=== PATIENT | male | born 1940 | race Caucasian/White ===

== ENCOUNTER → 2016-11-02 | Outpatient (CLI) | payer MEDICARE, MEDICAID ==
[~2016-11-02] MED LIST: "\\\"PREP SPRAY\\\"-TIN4 OZ"; ACETAMINOPHEN500 M1 PO; ASPIRIN EC81 MG PO; BRILINTA90 MG PO; CASODEX50 M1 PO; COLACE100 MG PO; COREG12.5 MG PO; DESYREL50 MG PO; FLOMAX0.4 MG PO; FLORASTOR250 MG PO; GLUCOSE4 GM PO; LACTINEX (FLORA1 TAB PO; LANTUS (IN100 UNIT/M SUB-Q; LANTUS SOL100 UNIT/1 SUB-Q; LASIX20 MG PO; LASIX40 MG PO; LEVEMIR100 UNIT/1 SUB-Q; LIPITOR80 MG PO; LUPRON DEPOT-22.5 MG IM; MYCOSTATIN CREA30 GM TOP; NORCO 5-325 MG1 TAB PO; NORVASC2.5 MG PO; NOVOLOG100 UNIT/M SUB-Q; PAXIL20 MG PO; PEPCID20 MG PO; PHOSLO667 MG PO; PRILOSEC20 MG PO; PROZAC20 MG PO; SODIUM BICARBO650 MG PO; THERAGRAN-M1 TAB PO; ULTRAM50 MG PO; VELTASSA8.4 GM PO; ZESTRIL40 MG PO; ZOFRAN8 MG PO
== END | disposition disaster alternative care site (69) ==
LOC: GRAD 10:30
DX: E11.22 Type 2 diabetes mellitus with diabetic chronic kidney disease (principal); N17.9 Acute kidney failure, unspecified; R93.49 Abnormal radiologic findings on diagnostic imaging of other urinary organs

== ENCOUNTER 2016-11-18 10:06 | Inpatient (IN) | payer MEDICARE, MEDICAID ==
[~2016-11-18] VITALS: Ht 175.3 cm; Wt 81.5 kg
--- NOTE | ~2016-11-18 | ER ---
PATIENT'S NAME: KEVAN WHATLEY [facility] AGE: 76 Y [address] ROOM: [place] [address] LOCATION: GPCU ADMIT DATE: 11/18/2016 ER/Outpatient Report DISCHARGE DATE: FAMILY PHYSICIAN: PHYSICIAN, UNKNOWN ATTENDING PHYSICIAN: HUGO RUSSO V TIME OF ARRIVAL: 1006 hours. TIME SEEN: 1006 hours. IDENTIFICATION: A 76-year-old male. CHIEF COMPLAINT: Fall. HISTORY OF PRESENT ILLNESS: The patient is a 76-year-old male who sustained a ground-level fall, landing on the right side of his head onto a carpeted floor. No loss of consciousness, but he is complaining of pain on the left side of his neck. He also complains of diffuse back pain. No numbness or tingling, and no other problems or concerns. His , however, states that he is not a pleasant person. He has been verbally abusive toward her. He has stated that he is depressed and not wanting to live anymore, and he has not been compliant with his medications. The patient does admit to depression. When asked about suicidal ideation, yes he has thoughts of suicide. No active plan, but a "partial plan." When I ask him what this means, he says he is thinking about what he wants to do. He does have a history of prostate cancer. He is supposed to get injections, but he does not do those regularly. He was just started on hemodialysis through a central dialysis catheter on the left side. He apparently no-showed some dialysis appointments, but he did get dialyzed on and was due for dialysis today. The patient did not have a syncopal episode. He states he just lost his balance approximately 40 minutes prior to arrival. PAST MEDICAL HISTORY: ALLERGIES: NO KNOWN DRUG ALLERGIES. CURRENT MEDICATIONS: The patient did not bring a medication list. They are unaware of the changes made in his medications. His discharge medications on October 18 included PATIENT'S NAME: KEVAN WHATLEY [facility] AGE: 76 Y [address] ROOM: [place] [address] LOCATION: GPCU ADMIT DATE: 11/18/2016 ER/Outpatient Report DISCHARGE DATE: FAMILY PHYSICIAN: PHYSICIAN, UNKNOWN ATTENDING PHYSICIAN: HUGO RUSSO V at that time: 1. Lisinopril. 2. Lipitor. 3. PhosLo. 4. Carvedilol. 5. Insulin Lantus. 6. Lupron. 7. Slovan. 8. Ultram. 9. Trazodone. 10. Multivitamin. 11. Zofran. 12. Famotidine. 13. Aspirin. 14. Flomax. His said that his medications have changed; some have been taken away, and some have been added, and they do not know what those are, and I do not have a current list of those. MEDICAL PROBLEMS: Include hematuria; chronic anemia, with acute blood loss anemia in October, received transfusions; acute kidney injury; chronic kidney disease; diabetes mellitus, insulin requiring; hypertension; metastatic prostate cancer; and coronary artery disease, status post CABG. PRIOR SURGERIES: CABG and prostatectomy. SOCIAL HISTORY: The patient works at a [employer]. He is . He lives here in [place]. Tobacco use: Denies currently. Alcohol use: Denies. Drug use: Denies. He quit smoking about 20 years ago, according to old records. FAMILY HISTORY: Positive for heart disease in his parents. REVIEW OF SYSTEMS: All systems reviewed. The patient denies any other positive review of systems. His , however, perseverates on his noncompliance and that he does not do anything. He does not bathe. She is quite concerned about him. PHYSICAL EXAMINATION: VITAL SIGNS: Blood pressure 124/53, pulse 84, respirations 20, temperature 97.9, and saturation is 96% on room air. GENERAL: A 76-year-old male, in mild distress. PATIENT'S NAME: KEVAN WHATLEY [facility] AGE: 76 Y [address] ROOM: [address] [address] [facility] ADMIT DATE: 11/18/2016 ER/Outpatient Report DISCHARGE DATE: FAMILY PHYSICIAN: PHYSICIAN, UNKNOWN ATTENDING PHYSICIAN: HUGO RUSSO V HEENT: Head: Normocephalic, atraumatic. Ears: TMs translucent, both ears. The patient is immobilized in a C-collar. Eyes: Pupils equal and reactive to light and accommodation. Extraocular movements intact. Nose: Mucosa pink, no lesions. Mouth: No lesions. Pharynx: Benign. NECK: Supple. No lymphadenopathy. He is immobilized in a C-collar. LUNGS: Clear to auscultation. HEART: Regular rate and rhythm. ABDOMEN: Soft and nondistended. No hepatosplenomegaly. No palpable masses. Nontender. SKIN: [place], warm, and dry. No lesions or rashes noted. NEUROLOGIC: No focal deficit. No significant lower extremity edema. No calf tenderness. No tenderness to pelvic rock. LABORATORY AND DIAGNOSTIC DATA: Chest x-ray: No acute process. Left-sided dialysis catheter in place. Pelvis x-ray: No acute fractures, pending Radiology over-read. Head CT: Negative for acute findings per Radiology. Cervical spine: Degenerative changes. No acute fracture. Thoracic spine CT: Degenerative changes. Scattered sclerotic bony lesions, worse at the T9 level, worrisome for bony metastatic disease. Lumbar spine CT: Multilevel degenerative changes with no fracture. Chronic bilateral spondylolysis at L5-S1. Small, scattered, sclerotic bony lesions. Bony metastatic disease cannot be excluded. EKG: Normal sinus rhythm at 93 beats per minute. No acute ST elevation or depression. Right bundle-branch block is present. No prior EKG available at this time for comparison. Alcohol less than 0.010. Acetaminophen less than 2. Salicylate less than 2.8. Troponin-I elevated at 0.506. CK-MB is normal at 1.6 and CPK 84. Magnesium 1.6. Sodium 136, potassium 4.6, chloride 106, CO2 low at 15, BUN 83, creatinine 5.0, and blood sugar 91. Alkaline phosphatase elevated at 764, AST 44, and ALT 54. Hemoglobin 7.4, most recent hemoglobin was 8.3 on November 13, hematocrit 23.6, macrocytic indices, platelets 199, and white count elevated at 22.1 with 75% segs and 16% bands. White blood cell count was 6.0 on November 13. Lactate 1.4. Procalcitonin 5.70. UA: Full field of white cells, 50 to 100 red cells, and rare epithelial cells. EMERGENCY DEPARTMENT COURSE: The patient's C-collar was removed, and his spine was palpated with tenderness, so it was placed back on, and he was placed in a [place] J collar due to persistent pain after a ground-level fall. IMPRESSION: 1. Fall with neck pain. [place] J collar placed. 2. Depression with suicidal ideation. 3. Leukocytosis. PATIENT'S NAME: KEVAN WHATLEY [facility] AGE: 76 Y [address] ROOM: [id number] [place], [place] [address] [facility] ADMIT DATE: 11/18/2016 ER/Outpatient Report DISCHARGE DATE: FAMILY PHYSICIAN: PHYSICIAN, UNKNOWN ATTENDING PHYSICIAN: HUGO RUSSO V 4. Urinary tract infection. Antibiotics will be started in Dialysis. 5. Chronic kidney disease, just recently started hemodialysis. The patient was taken emergently to dialysis. 6. Chronic anemia. 7. Acute blood loss anemia. Hemoglobin at this time is at baseline. It will be monitored, and if it falls, then he will receive packed red blood cells. 8. Prostate cancer with metastatic disease. PLAN: Admission per hospitalist after he receives dialysis. Again, antibiotics will be initiated in Dialysis. The patient remained hemodynamically stable throughout his stay here in the emergency room. VANIA DIAS MD CAR/modl /[id number] d: 11/18/16 1819 t: 11/19/16 0722, OUTPATIENT REPORT
--- NOTE | ~2016-11-18 | PN ---
PATIENT'S NAME: KEVAN WHATLEY [facility] AGE: 76 Y [address] ROOM: [place] [address] LOCATION: GPCU ADMIT DATE: 11/18/2016 Progress Notes DISCHARGE DATE: FAMILY PHYSICIAN: Vasyl Reece MD ATTENDING PHYSICIAN: HUGO RUSSO V DATE OF SERVICE: 12/02/2016 This patient is continuing to undergo hemodialysis. He has a hemodialysis catheter, which has stopped oozing. I placed several sutures in puncture sites, which were not closed and those are doing fine, not oozing, and they will need to be removed that being the sutures in several days. Of note is the fact that he is being treated with oral vancomycin for Clostridium difficile, but he has formed stools and hopefully will be taken off this relatively soon. His laboratory data show a white count of 12.2 which is down, but his hemoglobin is 6.9 and hematocrit 22.1, indeed he might need some blood. His chemistries have been reviewed and his electrolytes were reasonable. His BUN is 24, creatinine 3.4. The remainder noted is reasonably stable. Again, consideration for transfusion. MD PAUL ROSE/morena /[id number] d: 12/02/1631 t: 12/15/16 0648, PROGRESS NOTES
--- NOTE | ~2016-11-18 | CON ---
PATIENT'S NAME: KEVAN WHATLEY [facility] AGE: 76 Y [address] [place]OM: [facility] [place] [place] [address] LOCATION: GICU ADMIT DATE: 11/18/2016 Consultation DISCHARGE DATE: FAMILY PHYSICIAN: Vasyl Reece MD ATTENDING PHYSICIAN: HUGO RUSSO V DATE OF CONSULTATION: 11/25/2016 REFERRING PHYSICIAN: CARRIE JOSHUA This is a patient who is on hemodialysis via a left dialysis catheter. I was contacted by the nurses because he continued to bleed despite Surgicel and pressure dressings from the dialysis catheter site. I examined this and I saw 2 areas which were bleeding, one was a puncture wound that was not sutured and the second was the site of the catheter where the suture might not have been tight enough. He is bleeding from these 2 sites and I will repair those. MD PAUL ROSE/morena /[id number] d: 11/25/16 1536 t: 11/26/16 0954, CONSULTATION REPORT
--- NOTE | ~2016-11-18 | PN ---
PATIENT'S NAME: KEVAN WHATLEY [facility] AGE: 76 Y [address] ROOM: [place] [address] LOCATION: GPCU ADMIT DATE: 11/18/2016 Progress Notes DISCHARGE DATE: FAMILY PHYSICIAN: Vasyl Reece MD ATTENDING PHYSICIAN: HUGO RUSSO V DATE OF SERVICE: 11/26/2016 This is a patient on hemodialysis in which the hemodialysis catheter was placed by Radiology apparently, and yesterday, the nurses called me as he was bleeding from this. On examination, there were 2 puncture wounds. They were not sutured. I sutured these closed. He has had much improvement in terms of that. He oozed a little bit, but generally is stable, and I would continue appropriate dressing changes. Otherwise, he is stable. MD PAUL ROSE/morena /[id number] d: 11/26/16 1126 t: 12/01/16 1818, PROGRESS NOTES
--- NOTE | ~2016-11-18 | PN ---
PATIENT'S NAME: KEVAN WHATLEY [facility] AGE: 76 Y [address] ROOM: [place] [address] LOCATION: GPCU ADMIT DATE: 11/18/2016 Progress Notes DISCHARGE DATE: FAMILY PHYSICIAN: Vasyl Reece MD ATTENDING PHYSICIAN: HUGO RUSSO V DATE OF SERVICE: 12/01/2016 This patient is doing fairly still on hemodialysis and no further bleeding from his wounds. He is getting hemodialysis satisfactorily. He had a solid stool, and he will go through the protocol of possibly getting off precautions for his C. diff, and he is on oral antibiotics at this point. I will continue to follow and assume those sutures will be removed that I placed. MD PAUL ROSE/morena /[id number] d: 12/01/165 t: 12/15/16 0646, PROGRESS NOTES
--- NOTE | ~2016-11-18 | CON ---
PATIENT'S NAME: KEVAN WHATLEY [facility] AGE: 76 Y [address] ROOM: [id number] [place], [place] [address] LOCATION: GICU ADMIT DATE: 11/18/2016 Consultation DISCHARGE DATE: FAMILY PHYSICIAN: PHYSICIAN, UNKNOWN ATTENDING PHYSICIAN: HUGO RUSSO V DATE OF CONSULTATION: 11/18/2016 REFERRING PHYSICIAN: CARRIE ROUSE This is a [facility] Nephrology Consultation. REASON FOR CONSULTATION: End-stage renal disease, the patient is due for hemodialysis. HISTORY OF PRESENT ILLNESS: This is a 76-year-old male patient who is well known to Nephrology, who presents to the emergency room today after a fall. The patient was found to have 22,000 white count in the emergency room and has been subsequently admitted for workup and hemodialysis today. The patient was scheduled for outpatient hemodialysis today prior to his fall. The patient does have a history of metastatic prostate cancer with end-stage renal disease due to hypertension; diabetes mellitus type 2, on insulin; coronary artery disease; grade 1 diastolic dysfunction; anemia; and was recently started on hemodialysis as an outpatient at [facility] on 11/16/2016. The patient had a tunneled line placed on Sunday11/15/2016 and was scheduled for dialysis on Sunday. The patient however did not show up for his hemodialysis appointment on Sunday. He was dialyzed on following. The patient has also been treated as an outpatient for increasing depression over the last few weeks due to his diagnosis of end- stage renal disease, requiring hemodialysis. He was started on Paxil 10 mg daily this week, but however has not been taking his medication. Therefore due to his history of end-stage renal disease, requiring hemodialysis. Dr. Rouse has been consulted on the patient to manage his dialysis inpatient. PAST MEDICAL HISTORY: As listed above including, 1. End-stage renal disease. 2. Hypertension. 3. Diabetes mellitus, insulin dependent. 4. Coronary artery disease. 5. Grade 1 diastolic dysfunction. 6. Anemia. 7. Metastatic prostate cancer. 8. Metabolic acidosis. 9. Depression. PAST SURGICAL HISTORY: Includes, 1. Coronary artery bypass grafting surgery in 1997. 2. Complete colonoscopy in 2015. 3. Partial colectomy in 2015. 4. Prostatectomy in 2006. 5. History of rotator cuff repair. 6. History of erectile prostate. 7. History of tunneled line placement on 11/13/2016. PATIENT'S NAME: KEVAN WHATLEY [facility] AGE: 76 Y [address] ROOM: [id number] [place], [place] [address] LOCATION: GICU ADMIT DATE: 11/18/2016 Consultation DISCHARGE DATE: FAMILY PHYSICIAN: PHYSICIAN, UNKNOWN ATTENDING PHYSICIAN: HUGO RUSSO V FAMILY HISTORY: Reviewed and is noncontributory. There is no history of renal disease or dialysis. His mother had bladder cancer and his father of a stroke. There is significant family history of coronary artery disease. SOCIAL HISTORY: The patient denies any alcohol use. He has a history of remote tobacco abuse. He is a chronic caffeine user. ALLERGIES: NONE TO MEDICATION. CURRENT HOME MEDICATIONS: Include, 1. Coreg 12.5 mg twice a day. 2. Ultram 50 mg p.o. q.8 hours p.r.n. pain. 3. Lipitor 80 mg daily. 4. Theragran-M one tablet p.o. daily. 5. Lupron 22.5 mg IM every three months. 6. Zofran 8 mg p.o. q.8 hours p.r.n. nausea. 7. PhosLo 667 mg p.o. three times a day with food. 8. Lantus 35 units subcu daily. 9. Desyrel 50 mg p.o. daily at bedtime. 10. Paxil 20 mg p.o. daily. 11. Veltassa 8.4 g p.o. daily p.r.n. hyperkalemia. 12. Prilosec 20 mg p.o. daily. 13. Flomax 0.4 mg p.o. daily at bedtime. REVIEW OF SYSTEMS: GENERAL: Denies fever, chills, or night sweats. EYES: No double vision or blurred vision. NOSE: No epistaxis or rhinorrhea. MOUTH: No gingival bleeding. THROAT: No sore throat or hoarseness. RESPIRATORY: Denies wheezing or hemoptysis. CARDIOVASCULAR: Denies any chest pain or palpitations. Does have a history of CAD. GASTROINTESTINAL: Denies any nausea or vomiting. GENITOURINARY: Continues to make urine despite dialysis. MUSCULOSKELETAL: Complains of a fall with neck pain. NEUROLOGICAL: Denies loss of consciousness, numbness and tingling in the lower extremities. PSYCHIATRIC: History of recent depression; however, noncompliant with medication. Some reports of suicidal ideation per the . The patient currently denies now. HEMATOLOGICAL: Denies any recent bleeding; however, his hemoglobin has been trending down. PHYSICAL EXAMINATION: VITAL SIGNS: Blood pressure 124/54, pulse 84, respirations 20, temperature is 97.9, sat 96% on room air.PATIENT'S NAME: KEVAN WHATLEY [facility] AGE: 76 Y [address] ROOM: [address] [address] LOCATION: [facility] ADMIT DATE: 11/18/2016 Consultation DISCHARGE DATE: FAMILY PHYSICIAN: PHYSICIAN, UNKNOWN ATTENDING PHYSICIAN: HUGO RUSSO V GENERAL: On exam, this is an alert, oriented, white elderly male who appears his approximate stated age and is in no acute distress. HEENT: Head: Normocephalic, atraumatic. Eyes: Pupils are equal, round, and reactive to light and accommodation. EOMs are intact. Nose is midline. Mouth: No gingival bleeding. Ears: TMs are clear. NECK: Soft and supple. He is immobilized in a C-collar at time of exam. LUNGS: Clear to auscultation. CARDIOVASCULAR: Regular rate and rhythm. ABDOMEN: Soft, nontender, and nondistended. Bowel sounds are positive. EXTREMITIES: No signs peripheral edema, clubbing, or cyanosis. NEUROLOGIC: Cranial nerves 2 through 12 are grossly intact. LAB AND X-RAY: Chest x-ray shows no acute process. Pelvic x-ray shows no acute fractures. Head CT is negative for any acute findings. Cervical spine notes degenerative changes with no acute fracture. Thoracic spine shows degenerative changes with scattered sclerotic bony lesions worse at the T9 level, worrisome for bony metastatic disease. Lumbar CT-spine shows multilevel degenerative changes with no fracture. Chronic bilateral spondylolysis at L5 through S1. Small scattered sclerotic bone lesions. Bony metastatic disease cannot be excluded. EKG shows normal sinus rhythm with a heart rate of 93 beats per minute. There is no acute ST-T wave abnormalities. Lab shows sodium 136, potassium 4.6, chloride 106, CO2 is low at 15, BUN is 83, creatinine 5.0, blood sugar is 91. Alkaline phosphatase is elevated at 764. AST 44, ALT 54. Hemoglobin 7.4, hematocrit 23.6, platelets 199. WBCs 22.1. Lactate 1.4. Procalcitonin 5.7. A urinalysis was performed and is currently pending. ASSESSMENT AND PLAN: 1. End-stage renal disease, on hemodialysis therapy. The patient is currently due for his hemodialysis. At this time, we are going to run him for 3 hours. We are going to obtain blood cultures from the recently placed tunneled dialysis catheter. Should the tunneled line appear infected, we will remove NARA. The patient would then receive IV antibiotics at that time. We are going to run him at BFR 500ml/hr for a UF goal of 1-1.5 L. He is going to be on a 2 K bath with a 2.25 calcium bath. 2. Leukocytosis, concerning for a tunneled dialysis catheter infection as above. Further recommendations will be forthcoming. 3. Depression. We are going to obtain a psychiatric evaluation for his underlying depression. 4. Anemia. The patient's hemoglobin has been trending down. He is on Brilinta as an outpatient. We will have the patient obtain heme stools x3 for further evaluation of his blood loss. We will anticipate starting Epogen as well as iron as outpatient. This patient has been seen and assessed by Dr. Rouse. His care is being conducted in consultation with Dr. Rouse as well as me. We will plan further recommendations as they are forthcoming. DARYL LEACH DNP, APPRENTICE/[facility] FOR [facility] MD JULIO SOARES/ayadl /[id number] d: 11/19/169 t: 12/08/16 1457, CONSULTATION REPORT
--- NOTE | ~2016-11-18 | CON ---
PATIENT'S NAME: KEVAN WHATLEY [facility] AGE: 76 Y [address] ROOM: [address] [place], [place] [address] LOCATION: GICU ADMIT DATE: 11/18/2016 Consultation DISCHARGE DATE: FAMILY PHYSICIAN: PHYSICIAN, UNKNOWN ATTENDING PHYSICIAN: HUGO RUSSO V DATE OF CONSULTATION: 11/20/2016 REFERRING PHYSICIAN: CARRIE JOSHUA REASON FOR CONSULTATION: Gross hematuria with known metastatic prostate cancer. HISTORY: Kevan was admitted through the emergency room on 11/18/2016. He had severe back pain. He had a fall. He tells me most of the pain was in his neck. He had a battery of x-rays done. He has known bony metastatic disease. He is feeling better at this point with analgesics. He is in the ICU. There is also a question of sepsis. Apparently, his dialysis catheter was infected. He has had chronic renal failure. He has started hemodialysis since I last saw him. His last dialysis was on Sunday. He is making small amounts of urine. He tells me he is having bloody urine with occasional clots. Relative to that, he underwent cystoscopy and retrograde evaluation last month. We did not replace his left-sided stent. He had initially responded to hormone therapy and his hydronephrosis resolved. He had some hydronephrosis at the time of his study last month. However, his creatinine was at baseline. Compliance has been an issue with the patient for many years. He had actually missed his office appointment for his LHRH agonist injection. We had him set up after discharge. He was on no show at the office again on 11/06/2016. We will go ahead and get him his LHRH injection here. I have discussed with pharmacy. They have Sandi. That will be fine. Otherwise, we will observe and see how he does as far as his gross hematuria is concerned. At the time of his cystoscopy last month, he does not have any papillary tumors. He had only mild radiation cystitis. He had some catheter changes from his indwelling [place]. Depending on his progress, we may end up repeating his cystoscopy either for clots or for further diagnosis. Based on his overall condition, I would tend to follow him expectantly at this point. We will get his hormonal ablation resumed. He had developed liver failure at an admission in 2016. We will avoid the bicalutamide. There are reported cases of liver necrosis. Kevan is comfortable with the plan. IMPRESSION: PATIENT'S NAME: KEVAN WHATLEY [facility] AGE: 76 Y [address] ROOM: [id number] [place] [id number] LOCATION: [facility] ADMIT DATE: 11/18/2016 Consultation DISCHARGE DATE: FAMILY PHYSICIAN: PHYSICIAN, UNKNOWN ATTENDING PHYSICIAN: HUGO RUSSO V 1. Metastatic adenocarcinoma of the prostate. 2. Gross hematuria. 3. Left hydronephrosis. 4. Renal failure. PLAN: I will follow his progress and get him his LHRH injection as noted. Thank you for the consultation. MD CECILE STRAUSSH/morena /[id number] d: 11/20/16 2305 t: 11/29/16 0922, CONSULTATION REPORT
--- NOTE | ~2016-11-18 | DS ---
PATIENT'S NAME: KEVAN WHATLEY [facility] AGE: 76 Y [address] ROOM: [address] [address] LOCATION: GPCU ADMIT DATE: 11/18/2016 Discharge Summary DISCHARGE DATE: 12/05/2016 FAMILY PHYSICIAN: Vasyl Reece MD ATTENDING PHYSICIAN: Jac Youngblood V PRIMARY DIAGNOSES: 1. Septic shock. 2. Line sepsis. 3. MSSA bacteremia. 4. Clostridium difficile colitis. All these are acute diagnoses. CHRONIC CONDITION: Includes dementia and diabetes type 2. PRINCIPAL PROCEDURE: Done for the patient includes placement of a tunneled dialysis catheter, transfusion with 4 units of PRBC. YISSEL was also done which was negative LABORATORY DATA: On admission, WBC was 22.1, prior to discharge was 11.8, H and H on admission was 7.4/23.6, lowest level obtained was 6.7/21. Platelet on admission is 199, was stable throughout the hospital stay. Sodium on admission was 136, was also stable throughout hospital stay. Prior to discharge it was 135. Potassium on admission was 4.6, was stable throughout hospital stay. Highest level obtained was 6.0, prior to discharge it was 4.7. Creatinine on admission was 5.0. Highest obtained was 7.8. Prior to discharge 3.8. Phosphorus 4.8, prior to discharge 3.1. Hemoglobin 6.6, INR 1.2. UA: Leukocytes 500, WBC fulfilled, nitrite negative. Urine drug screen negative. Procalcitonin on admission was 5.7, highest level obtained was 8.73. PSH 2.71. MICROBIOLOGY: Blood culture x2 sets, staph, the repeat remained Staph, and catheter tip culture was Staph MSSA. Repeat blood culture after that was no growth after 5 days. Subsequent repeat blood cultures shows remained no growth. Urine cultures were also no growth. Stool for heme test was positive. Stool for C. difficile was positive. RADIOLOGY: Chest x-ray there was no acute process. X-ray of the pelvis, no evidence of fracture or dislocation. Unremarkable CT exam of the brain. CT- spine; Cervical, thoracic, and lumbar, degenerative changes with no evidence of displaced fracture or dislocation. CT thoracic; degenerative changes with no evidence of fracture or dislocation. Scattered sclerotic bony lesions worse at the T9 level, worsened for bone metastatic disease. CT lumbar multilevel degenerative changes with no displaced fracture or dislocation identified. Chronic bilateral spondylosis, small scattered sclerotic bone lesion. Bony metastatic disease cannot be excluded. Ultrasound, mildly PATIENT'S NAME: KEVAN WHATLEY [facility] AGE: 76 Y [address] ROOM: [place] [address] LOCATION: GPCU ADMIT DATE: 11/18/2016 Discharge Summary DISCHARGE DATE: 12/05/2016 FAMILY PHYSICIAN: Vasyl Reece MD ATTENDING PHYSICIAN: Jac Youngblood V atrophic-appearing left kidney. 4.1 cm left renal cyst. No evidence of hydronephrosis or solid mass. Small amount of fluid adjacent to the liver and spleen. HOSPITAL COURSE: For history of present illness, please take a look at the H and P, which was done by Dr. Long. The patient was admitted to ICU as he presented with septic shock which was thought to be secondary to his line sepsis. He was started on broad-spectrum antibiotics of Vancomycin and Zosyn. By the next day of his hospital stay, his blood culture was already positive for Staph. He did require Levophed on and off for 7 days while in the ICU. Eventually, he was weaned off the pressors and by which time, the sensitivity of his culture was available as methicillin-sensitive Staph aureus, and his antibiotics was deescalated to oxacillin. However, after the patient was reviewed by ID, recommended for patient to be on Ancef for a total of about 2 weeks from the negative repeat blood culture. The patient was successfully transferred out of the ICU into the PCU. Also while in the ICU, he did also get a Psychiatric evaluation for his depression and modified his medication around. During his hospital stay, he was still followed up with the Renal Team. Following the removal of his infected line by the 4th day of his hospital stay, he got his tunnel dialysis catheter put in place and he was restarted back on his dialysis. While in PCU,we continued on his antibiotics, physical therapy, and also occupational therapy also started to work with him. He did also get a YISSEL done which was negative for any vegetation. He continued with his dialysis and there was a challenge with placement, given the fact that the patient was on dialysis. There was difficulty with his placement eventually. The Retail Product Advisor Team were successful in placing the patient at [facility] in [place] and by the time the patient was discharged, he had completed his two weeks of Ancef and he was discharged to the retirement. He was also diagnosed with C diff colitis for which he was put on vancomycin which was to be for a total of about 2 weeks MEDICATIONS ON DISCHARGE: Includes 1. Lipitor 80 mg p.o. q.a.m. 2. Vancomycin 2.5 mL p.o. every 6 hours, to stop on December 08, 2016 for total of 2 weeks. 3. Aspirin 81 mg p.o. daily. 4. Casodex 50 mg p.o. daily. 5. Calcium acetate 667 mg p.o. three times daily with meals. 6. Coreg 12.5 mg p.o. twice daily. 7. Periactin 2 mg p.o. four times daily, anorexia. 8. Lexapro 10 mg p.o. daily. 9. Multivitamin one tab p.o. daily. 10. Fentanyl patch 25 mcg every 72 hours. 11. Insulin aspartate NovoLog mild sliding scale. 12. Iron sucrose 100 mg IV with dialysis on Sunday, Wednesdays and Fridays PATIENT'S NAME: KEVAN WHATLEY [facility] AGE: 76 Y [address] ROOM: [place] [address] LOCATION: GPCU ADMIT DATE: 11/18/2016 Discharge Summary DISCHARGE DATE: 12/05/2016 FAMILY PHYSICIAN: Vasyl Reece MD ATTENDING PHYSICIAN: Jac Youngblood V x10 doses. Stop on December 11. 13. Zyprexa 5 mg p.o. at bedtime. 14. Prilosec 20 mg p.o. daily. 15. Flomax 0.4 mg p.o. at bedtime. 16. Trazodone 50 mg p.o. at bedtime. 17. Sodium bicarb 1300 mg p.o. three times daily. 18. Dextrose 4 g p.o. one time. 19. Zofran 8 mg p.o. q.8 hours p.r.n. 20. Zyprexa 5 mg p.o. at bedtime p.r.n. 21. Patiromer calcium 8.4 mg p.o. daily p.r.n. 22. Ultram 50 mg p.o. q.8 hours p.r.n. 23. Florastor 250 mg b.i.d. p.o.,new medication. Discharge time spent on this patient is approximately 35 minutes. MD CHERYL RIOS/ayadl /[id number] d: 12/06/16 0441 t: 12/06/16 1725, DISCHARGE SUMMARY
--- NOTE | ~2016-11-18 | CON ---
PATIENT'S NAME: KEVAN WHATLEY [facility] AGE: 76 Y [address] ROOM: [place] [address] LOCATION: GPCU ADMIT DATE: 11/18/2016 Consultation DISCHARGE DATE: FAMILY PHYSICIAN: Vasyl Reece MD ATTENDING PHYSICIAN: HUGO RUSSO V DATE OF CONSULTATION: 11/22/2016 REFERRING PHYSICIAN: CARRIE JOSHUA REASON FOR EVALUATION: MSSA septicemia. CHIEF COMPLAINT: The patient states he wants to go back to bed. Note, history from the patient is limited as he is not a very forthcoming historian. HISTORY OF PRESENT ILLNESS: Mr. Whatley is a 76-year-old man with advanced kidney disease, who was recently started on dialysis. Apparently, his house has had very poor condition and he very recently had a dialysis line placed to begin dialysis. Per chart review, this may have actually been on the in any event he had some sort of fall at home. He was brought to the hospital. He was noted to have a large leukocytosis and purulence from his dialysis line site. He was started on antibiotics initially, vancomycin and Zosyn. Blood cultures grew MSSA. The line was removed early on. He had follow up blood cultures obtained yesterday, which were negative. I am asked to evaluate. At this time, he is not very forthcoming with information at all. He tells me he wishes to go back to bed and does not really answer me when I asked about back pain, joint pain, etc. He states that he is tired. PAST MEDICAL HISTORY: Significant for apparent metastatic prostate cancer; diabetes mellitus; high blood pressure; now end-stage renal disease, on dialysis; and coronary artery disease. SOCIAL HISTORY: Per chart review, positive for tobacco abuse, but he quit a couple decades ago. I am uncertain about alcohol and drug abuse. Per the history and physical, his home conditions could be somewhat better. FAMILY HISTORY: I am uncertain of at this time. REVIEW OF SYSTEMS: The patient is not very forthcoming with review of systems, so this cannot be PATIENT'S NAME: KEVAN WHATLEY [facility] AGE: 76 Y [address] ROOM: [place] [address] LOCATION: GPCU ADMIT DATE: 11/18/2016 Consultation DISCHARGE DATE: FAMILY PHYSICIAN: Vasyl Reece MD ATTENDING PHYSICIAN: HUGO RUSSO. PHYSICAL EXAMINATION: VITAL SIGNS: Temperature 37.7, heart rate 82, and blood pressure 109/51. GENERAL: The patient is sitting up in chair, looks tired. HEENT: The patient is anicteric. No conjunctival lesions noted. Ears, nose, throat: Tongue has no thrush. CARDIOVASCULAR: Heart is regular with a systolic murmur present. RESPIRATORY: Breathing is easy and unlabored. Lungs are clear anterolaterally. GASTROINTESTINAL: Abdomen is soft and nontender. Normoactive bowel sounds are present. GENITOURINARY: Does not seem to have suprapubic tenderness. NEUROLOGIC: The patient is awake. He initially answers questions appropriately, but then kind of stops answering questions for me. LYMPHATICS: No cervical lymphadenopathy. MUSCULOSKELETAL: No effusions of fingers, wrists, elbows, shoulders, or knees. INTEGUMENTARY: No splinter hemorrhages of fingernails. He does have some onychomycosis of toenails. LABORATORY DATA: Laboratory studies are reviewed in the electronic medical record. ASSESSMENT AND RECOMMENDATIONS: MSSA septicemia. His blood cultures were positive and his catheter tips were positive on . I do not know exactly how rapidly he cleared. His blood cultures on the were negative, so it was not a very prolonged bacteria, although I am uncertain how long he may have been bacteremic at home prior to his evaluation. He cannot have been too long as I believe per one note that I read this line was placed on the ? He had a transthoracic echocardiogram, which was not bad. He has not had a YISSEL. I can change him over to cefazolin to ease his dosing schedule. He is making minimal urine output. So for now, his dose will be cefazolin 1 gram q.h.s. after an initial loading dose of 2 grams. Should he remain with minimal urine output, he can be dosed just with dialysis on a 2-gram, 2-gram, 3-gram schedule. Should his urine output increased, he may require daily cefazolin instead. We will have to see how this goes. Duration of therapy is not entirely clear here. There is no clinical evidence of metastatic staphylococcal infection. We do not have an excellent look at his heart valves. If we do not obtain a YISSEL, I think we should treat for 4 weeks of therapy from negative blood cultures assuming the blood cultures remained negative, which would give a stop date of December 18. Should the December 22 blood cultures return positive, he will require longer duration of therapy and a YISSEL. Should the patient and family wish to perform a YISSEL and it is negative for infection, this may shorten his PATIENT'S NAME: KEVAN WHATLEY [facility] AGE: 76 Y [address] ROOM: [address] [address] [facility] ADMIT DATE: 11/18/2016 Consultation DISCHARGE DATE: FAMILY PHYSICIAN: Vasyl Reece MD ATTENDING PHYSICIAN: HUGO RUSSO V antibiotic duration to just 2 weeks from negative blood cultures. As he is not very forthcoming with me at this time, I will defer the decision on YISSEL to primary service. Thank you allowing me to participate in the care of Mr. Whatley. UYEN JAIN MD DSQ/modl /[id number] d: 11/22/161904 t: 11/23/16 1002, CONSULTATION REPORT
--- NOTE | ~2016-11-18 | PN ---
PATIENT'S NAME: KEVAN WHATLEY [facility] AGE: 76 Y [address] ROOM: [place] [address] LOCATION: GPCU ADMIT DATE: 11/18/2016 Progress Notes DISCHARGE DATE: FAMILY PHYSICIAN: Vasyl Reece MD ATTENDING PHYSICIAN: HUGO RUSSO V DATE OF SERVICE: 12/02/2016 Since this morning, he has had another bowel movement, and he is tentatively set to go to the long-term this early week. He tolerated his one unit of blood that was ordered by his primary care doctor. MD PAUL ROSE/morena /[id number] d: 12/02/16 1807 t: 12/15/16 0651, PROGRESS NOTES
--- NOTE | ~2016-11-18 | PN ---
PATIENT'S NAME: KEVAN WHATLEY [facility] AGE: 76 Y [address] ROOM: [address] [address] LOCATION: GPCU ADMIT DATE: 11/18/2016 Progress Notes DISCHARGE DATE: FAMILY PHYSICIAN: Vasyl Reece MD ATTENDING PHYSICIAN: HUGO RUSSO V DATE OF SERVICE: 12/03/2016 HISTORY OF PRESENT ILLNESS: This patient will possibly go in to a Nursing Facility tomorrow or the next day, where he will also get dialysis. He is on oral vancomycin, and most likely his Clostridium difficile will be resolved as he has had solid bowel movements. He did receive a unit of blood yesterday. LABORATORY DATA: His laboratory values today showed a potassium of 5.4, a BUN of 36, and a creatinine of 4.7. His white count is 12.1, his hemoglobin is 7.9, and hematocrit is 24.5. He might require another unit of blood. His platelet count is 291,000. That decision will be made by his primary care doctor. RECOMMENDATIONS: He is currently stable. He will need those sutures removed from his neck in several days, and consideration for another unit of blood. MD PAUL ROSE/morena /[id number] d: 12/03/16 0648 t: 12/15/16 0653, PROGRESS NOTES
--- NOTE | ~2016-11-18 | CON ---
PATIENT'S NAME: KEVAN WHATLEY [facility] AGE: 76 Y [address] ROOM: [id number] [place], [place] [address] LOCATION: [facility] ADMIT DATE: 11/18/2016 Consultation DISCHARGE DATE: FAMILY PHYSICIAN: PHYSICIAN, UNKNOWN ATTENDING PHYSICIAN: HUGO RUSSO V DATE OF CONSULTATION: 11/21/2016 REFERRING PHYSICIAN: CARRIE JOSHUA REASON FOR CONSULT: Depression. HISTORY OF PRESENT ILLNESS: The patient is a 76-year-old male with a history of end-stage renal disease and recurrent depression, who presents with depressed mood and suicidal thoughts. He says that he has had depression off and on for about 4 or 5 years, worse in the last several months. He notes poor sleep, low energy, anhedonia, reduced appetite, and weight loss. He has also been ignoring his self-care and says that he does not care about anything anymore. He has also been having recurrent suicidal thoughts, and says that he has no plans, but if he were to do something, it would not be messy. He feels hopeless, worthless, and slowed physically and mentally. He also blames his psychomotor retardation on his medical condition. The patient says that he has been having visual hallucinations which started recently. He sees floating grapes and cobwebs with black spiders. He, however, states that the hallucinations are not distressing. He denies hallucinations in other modalities and denies other psychotic symptoms. The patient denies a history of manic or hypomanic episodes, and has no anxiety, panic attacks, phobias, obsessions, or compulsions. PAST PSYCHIATRIC HISTORY: The patient has a history of recurrent depression and states that he saw a psychiatrist several years ago. He denies prior psychiatric hospitalizations and has no history of self-harm or prior suicide attempts. He says that he has been on Effexor, fluoxetine, and others that he does not recall, and was restarted on Paxil about a week ago. The patient also says that the trazodone helps with his sleep but not anymore. He wonders if the dose could be increased. PAST MEDICAL HISTORY: End-stage renal disease, diabetes, hypertension, prostate cancer, coronary artery disease, chronic anemia, and sepsis. MEDICATIONS: See medication list. PATIENT'S NAME: KEVAN WHATLEY [facility] AGE: 76 Y [address] ROOM: [address] [address] LOCATION: GICU ADMIT DATE: 11/18/2016 Consultation DISCHARGE DATE: FAMILY PHYSICIAN: PHYSICIAN, UNKNOWN ATTENDING PHYSICIAN: HUGO RUSSO V ALLERGIES: NO KNOWN DRUG ALLERGIES. PAST FAMILY AND SOCIAL HISTORY: The patient is and has 1 child. He lives in [place] with his . He denies a history of abuse or trauma. He completed high school and did 2 years of college. He is retired and denies current alcohol, tobacco, or illicit drug use. He is unaware of any history of mental illness in his family. REVIEW OF SYSTEMS: Ten systems reviewed and all others negative except as noted in the history. MENTAL STATUS EXAMINATION: The patient is in bed. He is pleasant and cooperative with the interview. He makes good eye contact. He has a normal psychomotor activity. His speech is normal. He describes his mood as depressed. His affect is reactive and spontaneous. His thoughts are logical and goal directed. He endorses suicidal ideation but with no current plans. He denies homicidal or violent ideations. He has visual hallucinations and no delusions are noted at the interview. He is alert and oriented to time, person, and place. His concentration and memory are normal. His language is intact. His intelligence is average. His insight and judgment are good. DIAGNOSIS: Major depressive disorder, recurrent, with psychotic features. PLAN: While it is unclear if the patient's visual hallucinations are related to his depression or from the azotemia, we will go ahead and start Seroquel 25 mg at bedtime. Continue trazodone 75 mg at bedtime and switch Paxil to Lexapro 10 mg daily. Monitor for response and adverse effects and adjust doses as appropriate. Consider inpatient psychiatric hospitalization if the patient remains suicidal and is medically stable. Thank you for your consult. MD MARCUS HARDING/morena PATIENT'S NAME: KEVAN WHATLEY [facility] AGE: 76 Y [address] ROOM: [address] [address] LOCATION: [facility] ADMIT DATE: 11/18/2016 Consultation DISCHARGE DATE: FAMILY PHYSICIAN: PHYSICIAN, UNKNOWN ATTENDING PHYSICIAN: HUGO RUSSO V /[id number] d: 11/21/16 0924 t: 11/21/16 1631, CONSULTATION REPORT
--- NOTE | ~2016-11-18 | HP ---
PATIENT'S NAME: KEVAN WHATLEY [facility] AGE: 76 Y [address] ROOM: [place] [address] LOCATION: GPCU ADMIT DATE: 11/18/2016 History & Physical DISCHARGE DATE: FAMILY PHYSICIAN: PHYSICIAN, UNKNOWN ATTENDING PHYSICIAN: HUGO RUSSO V DATE OF SERVICE: CHIEF COMPLAINT: Mechanical fall. HISTORY OF PRESENT ILLNESS: This is provided by the patient as well as by his and he is not a reliable historian. 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 The patient was brought into the hospital today by his family because they found him on the floor and could not get him up. The patient reports a mechanical fall. No chest pain, shortness of breath, nausea, vomiting, diarrhea, or any other complaints that he volunteers. However, upon further examination in the ER, the patient did express some suicidal ideations without a plan. The reports that the patient has been ignoring his personal hygiene, not bathing, not cleaning, and there is a bad odor as well as bloody urine on the cruz of his house. The patient did recently have an admission for hematuria and was transfused, but it is my understanding that the ultimate source of that hematuria was not found, even after cystoscopy. At this point, the patient admits to some depression, but denies any suicidal ideations with a plan. In the ER, workup demonstrated a white count of 22 with 16% bands. The patient also has a purulent discharge around his dialysis catheter which was placed five days ago. REVIEW OF SYSTEMS: All systems have been reviewed and negative aside from pertinent positives as mentioned above. PAST MEDICAL HISTORY: 1. CKD, stage 4-5. 2. Metastatic prostate cancer. 3. Ury-uiqtvcp-hpreyqpap diabetes. 4. Hypertension. PATIENT'S NAME: KEVAN WHATLEY [facility] AGE: 76 Y [address] ROOM: [address] [address] LOCATION: GPCU ADMIT DATE: 11/18/2016 History & Physical DISCHARGE DATE: FAMILY PHYSICIAN: PHYSICIAN, UNKNOWN ATTENDING PHYSICIAN: KAGANAS,HUGO V 5. Coronary artery disease, status post CABG. SOCIAL HISTORY: Significant for longstanding history of tobacco abuse. The patient having quit about 20 years ago. FAMILY HISTORY: Reviewed and is noncontributory due to a known underlying etiology for his presentation. CURRENT MEDICATIONS: The list is being compiled, but these include, 1. Lisinopril. 2. Lipitor. 3. PhosLo. 4. Carvedilol. 5. Lantus. 6. Lupron. 7. [place]. 8. Trazodone. 9. Paxil which was recently started for his depression. His compliance with his medication is very questionable. PHYSICAL EXAMINATION: VITAL SIGNS: Blood pressure 130/80, heart rate is in the 80s, saturating 94% on room air. He is afebrile. Respirations are 16. GENERAL: Appears as a chronically ill, unkempt, elderly male, in no acute distress. NEUROLOGICAL: Nonfocal. He does have a [place] J, which was placed for neck pain related to the fall. SKIN: Pale, warm, and dry. EYES: Shows pupils are equal, round, and reactive to light. LYMPHATIC: Shows no cervical lymphadenopathy. ENDOCRINE: Shows no thyromegaly. LUNGS: Clear to auscultation. HEART: Rate is regular. No appreciable murmurs, gallops, or rubs. GI: Abdomen is soft, nontender, nondistended. : Reveals no costovertebral angle tenderness. VASCULAR: Reveals 2+ pedal pulses. MUSCULOSKELETAL: Shows no muscle or joint abnormalities. PSYCHIATRIC: Significant for depressed mood, but no suicidal ideations. LABORATORY DATA: Studies performed in the ER significant for a lactate of 1.4, bicarb of 15, creatinine of 5.0. Alk phosphatase of 764, troponin of 0.5. White count of PATIENT'S NAME: KEVAN WHATLEY [facility] AGE: 76 Y [address] ROOM: [id number] [place] [id number] [facility] ADMIT DATE: 11/18/2016 History & Physical DISCHARGE DATE: FAMILY PHYSICIAN: PHYSICIAN, UNKNOWN ATTENDING PHYSICIAN: HUGO RUSSO V 22, hemoglobin 7.4, platelets of 199, and 16% bands. Urinalysis is significant for full field of WBC. ASSESSMENT AND PLAN: This is a 76-year-old male who will be admitted with, 1. Leukocytosis with bandemia. The patient has two possible sources for infection, one of those being his catheter and the other one being his urine. Cultures from the catheter have been drawn and sent out. Urine culture has been sent out as well. We will treat him with broad-spectrum antibiotics including vancomycin and Zosyn. We will follow up his cultures and narrow down regimen as needed. We will remove the line after dialysis. 2. Acute on chronic blood loss anemia, and at this point, his hemoglobin somewhat at baseline. We will monitor that closely and transfuse him, if there is an acute drop. 3. Urinary tract infection as per #1. 4. Chronic kidney disease. The patient is currently being seen in dialysis and his Sunday session has been started now. 5. Prostate cancer noted. 6. Suicidal ideations with disorganized behavior at home. We will request a psychiatry evaluation. The patient is not safe to go home based on what was told to me by the and he will need placement, once the acute phase of the hospitalization is resolved. 7. Deep venous thrombosis prophylaxis will be pharmacologic as the patient is a high risk for deep venous thrombosis. 8. Additional management will depend on clinical course. Time dedicated to the patient's encounter is 35 minutes. MD JAMES LUJAN/morena /[id number] D: [id number] T: [id number] HISTORY & PHYSICAL
--- NOTE | ~2016-11-18 | OR ---
PATIENT'S NAME: KEVAN WHATLEY [facility] AGE: 76 Y [address] ROOM: [place] [address] LOCATION: GICU ADMIT DATE: 11/18/2016 OR/Procedure Report DISCHARGE DATE: FAMILY PHYSICIAN: Vasyl Reece MD ATTENDING PHYSICIAN: HUGO RUSSO V SURGEON: Kang Berger MD HOUSEHOLD APPLIANCES SERVICE TECHNICIAN: DATE OF PROCEDURE: 11/25/2016 PREOPERATIVE DIAGNOSIS: Hemodialysis catheter with bleeding. POSTOPERATIVE DIAGNOSIS: Hemodialysis catheter with bleeding. PROCEDURE PERFORMED: Suture of puncture wounds. DESCRIPTION OF PROCEDURE: The patient was evaluated and there were 2 areas that were bleeding. One was on-sutured puncture wound and the other was a suture wound, which was not quite tight enough. The area was prepped and using 3-0 Prolene these were both sutured accordingly. Sterile dressing was applied. The patient tolerated suture satisfactorily. MD PAUL ROSE/morena /[id number] d: 11/25/16 1506 t: 11/26/16 0952, OPERATIVE SUMMARY
--- NOTE | ~2016-11-18 | ECHO ---
Transthoracic Echocardiography Report (TTE) Demographics Patient Name KEVAN WHATLEY Date of Study 11/19/2016 Patient Number [id number] Visit Number [id number] Date of 1940 Room Number G6216 Gender Male Number Age 76 year(s) Referring Kathie Spicer MD Counseling Center Director Sherrill RONT, [facility] Physician Mariam Physician Interpreting Sushila Tillman MD Clinical Research Nurse Physician Supervising Ordering Ford Braxton MD, MD/MLP Physician Nurse Stress Workforce Management Consultant Conclusions Contractility Score Summary Normal Left Ventricular contractility was noted. Summary The estimated left ventricular ejection fraction is 65, 60-65% with normal WM and internal dimension.Mild concentric left ventricular hypertrophy.Septum is bouncy. MAC. Mild-moderate mitral regurgitation by color Doppler. Trivial TR. Procedure Type of Study TTE procedure:2D Echocardiogram, M-Mode, Doppler , Color Doppler. Procedure Date Date: 11/19/2016 Start: 01:41 PM Study Location: Inpatient Portable Technical Quality: Adequate visualization Additional Indications:sepsis Appropriate Use Criteria: 7 Patient Status: Routine HR: 70 bpm BP: 99/45 mmHg M-Mode/2D Measurements LV Diastolic Dimension: 5.2 cm LV Systolic Dimension: 2.52 cm LV Septum Diastolic: 0.88 cm LV PW Diastolic: 1.24 cm AO Root Dimension: 2.7 cm Cardiac Output: 3.86 l/min AV Cusp Separation: 1.6 cm RV Diastolic Dimension: 3.05 cm LA volume: 24 ml LVOT: 1.8 cm RV Base: 2.47 cm LVOT VTI: 21.7 cm RV Mid: 2.89 cm LV Stroke volume: 55.19 ml TAPSE: 2.08 cm TDI-S': 10.4 cm/s Doppler Measurements AV Peak Velocity: 1.41 m/s MV Peak E-Wave: 1.33 m/s AV Peak Gradient: 7.95 mmHg MV Peak A-Wave: 0.94 m/s AV Mean Gradient: 5 mmHg MV E/A Ratio: 1.42 LVOT Peak Velocity: 1.04 m/s MV P1/2t: 96 msec TR Gradient:5.38 mmHg PV Peak Velocity: 0.63 m/s Estimated RAP:10 mmHg PV Peak Gradient: 1.59 mmHg Estimated RVSP: 15 mmHg Estimated PASP: 15.38 mmHg E' Septal Velocity: 0.06 m/s A' Septal Velocity: 0.12 m/s E' Lateral Velocity: 0.09 m/s A' Lateral Velocity: 0.11 m/s Findings Left Ventricle Normal left ventricle size and function.Septum is bouncy. Right Ventricle Normal right ventricle structure and function. Left Atrium Normal left atrial size. Right Atrium Normal right atrial size. Mitral Valve Mild mitral annular calcification. Mild-moderate mitral regurgitation by color Doppler. Aortic Valve Normal aortic valve structure and function. Tricuspid Valve Trivial tricuspid regurgitation by color Doppler. Pulmonic Valve Normal pulmonic valve structure and function. Pericardial Effusion No evidence of pericardial effusion. Pleural Effusion No evidence of pleural effusion. Contractility Score LV regional wall motion:(0-Non visualized 1-Normal 2-Hypokinesis 3-Akinesis 4-Dyskinesis 5-Aneurysm) Signature dtt: Layne Conti dtd: 11/19/16 1341 Physician Self Edit
--- NOTE | ~2016-11-18 | CON ---
PATIENT'S NAME: KEVAN WHATLEY [facility] AGE: 76 Y [address] ROOM: [place] [address] LOCATION: GPCU ADMIT DATE: 11/18/2016 Consultation DISCHARGE DATE: FAMILY PHYSICIAN: Vasyl Reece MD ATTENDING PHYSICIAN: HUGO RUSSO V DATE OF CONSULTATION: 11/27/2016 REFERRING PHYSICIAN: CARRIE ROUSE CONSULTATION/PROGRESS NOTE DATA: The patient was seen today on a one-to-one and the case was discussed with the nurse for vital signs and collateral information also with Dr. Alvarado and Dr. Rouse. CHIEF COMPLAINT: Depression, psychosis, noncompliance, possible delirium. INTERVAL HISTORY: The patient was recently seen by Dr. Quinteros on November 21 with the diagnosis of major depressive disorder with psychotic features. The patient quite aggressively has deteriorated in his physical health, and at one point, his medication were discontinued, but the antipsychotic was not restarted. He is at present time on Lexapro, but this psychotic and under these circumstances the antidepressant tends not to work. At present time, the patient is well oriented, not confused right now, is not certain when was the last time that he might be confused, but it is just possible that he had been delirious in the past. At present time, there is no such symptomatology at least not evidently. MENTAL STATUS EXAMINATION: This is a gentleman, cooperative, good hygiene, good eye contact. No psychomotor agitation or retardation. Speech is normal in volume, motor, and production. Mood is depressed. Affect is restricted, appropriate to thought content. Thought content is relevant. The patient is denying suicidal or homicidal ideation. Endorsing auditory and visual hallucination that bother the patient quite a bit. No delusional thoughts. Thought process is coherent, congruent. No loosening of association. Insight and judgment seem to be limited. Memory is within normal limits. He is alert and oriented. Intelligence is average. DIAGNOSES: Major depressive disorder, now single episode severe with psychotic features. PATIENT'S NAME: KEVAN WHATLEY [facility] AGE: 76 Y [address] ROOM: [address] [address] LOCATION: GPCU ADMIT DATE: 11/18/2016 Consultation DISCHARGE DATE: FAMILY PHYSICIAN: Vasyl Reece MD ATTENDING PHYSICIAN: HUGO RUSSO V MEDICAL DECISION MAKING: After talking about risks, benefits, side effects, the patient voices understanding, consent and preference for adding Zyprexa, so we can control the visual hallucinations and help both with antidepressants started working finally. The patient should continue with the rest of the treatment per his own doctor in [facility], and the order actually is going to read as Zyprexa 5 mg x1 now and Zyprexa 5-10 mg at nighttime. The patient again should continue with Lexapro. KRISTOFER PETER MD HG/modl /[id number] d: 11/28/16 1739 t: 11/29/16 1113, CONSULTATION REPORT
--- NOTE | ~2016-11-18 | CON ---
PATIENT'S NAME: KEVAN WHATLEY [facility] AGE: 76 Y [address] ROOM: [address] [place], [place] [address] LOCATION: GICU ADMIT DATE: 11/18/2016 Consultation DISCHARGE DATE: FAMILY PHYSICIAN: PHYSICIAN, UNKNOWN ATTENDING PHYSICIAN: HUGO RUSSO V REFERRING PHYSICIAN: CARRIE ROUSE CHIEF COMPLAINT: Asked to evaluate the patient with metastatic prostate cancer and bone metastasis. HISTORY OF PRESENT ILLNESS: Kevan Whatley is a 76-year-old gentleman, who was admitted to the [facility] on 11/18/2016 after having a fall at home on Sunday morning. He reports that he had a hemodialysis catheter placed on Sunday, the week prior to that, and may elect for dialysis on . They noticed it was slightly red, indurated, they cleaned it up, did dialysis, and sent him home. Apparently Sunday, after increasing weakness ended up falling at home and unable to get up, he was brought into [facility] for further evaluation and treatment. He was initiated on vancomycin and Zosyn with findings of leukocytosis and erythema of the hemodialysis catheter and the hemodialysis catheter has since been pulled. He has had blood cultures and the tip of the catheter were cultured, all demonstrating Staph aureus, not MRSA. He is doing better today, otherwise reported of quite weak and still reports hallucinating, seeing black fogginess at times as well as seeing things that are not there. This is quite aggravating for him. He reports several weeks prior to the hospital stay he had been doing quite well, and he started feeling weaker this last week, has had increased neck and back pain. After the fall, he is left currently with low back pain that is quite uncomfortable with getting up and around. With regard to the patient's prostate cancer, he was diagnosed in 2005 with biopsy demonstrating [place] 3+3=6. He had prostatectomy at that time in 2006 or 2007 and had been followed by Urology since and in 2016 with finding of bone metastasis on bone scans. He was initially on total androgen ablation including Lupron shots every 3 months, which he is due for this month or next month as well as Casodex. He does have chronic renal insufficiency and as mentioned above was recently started on hemodialysis and is followed by Dr. Rouse with Nephrology. I am not aware that Procrit has been initiated, but has chronic anemia, which progressed since October of this year with hemoglobin stably in the 7 and 8 range. Additionally, he has had hematuria without etiology identified and most recently in October 2016, he had cystoscopy by Dr. Padilla without evidence for bleeding, but slight hydronephrosis noted on the right kidney. He has had previous stent in the right ureter, which was removed in the fall of last year. PATIENT'S NAME: KEVAN WHATLEY [facility] AGE: 76 Y [address] ROOM: [id number] [place], [place] [address] LOCATION: GICU ADMIT DATE: 11/18/2016 Consultation DISCHARGE DATE: FAMILY PHYSICIAN: PHYSICIAN, UNKNOWN ATTENDING PHYSICIAN: HUGO RUSSO V PAST MEDICAL HISTORY: Coronary artery disease status post CABG in 1997; chronic renal insufficiency, started hemodialysis last week; cholelithiasis; anemia since October of 2015; depression; diabetes; and hypertension. He has had previous left-sided hydronephrosis with stent placement last year and removed in the fall. FAMILY HISTORY: The patient's mother had bladder cancer. Father of a stroke. There is significant coronary artery disease and heart attacks in the family. SOCIAL HISTORY: The patient does not smoke and does not drink. Lives in [place] with his . He is from [place]. MEDICATIONS: Please review the MAR for complete listing of medications. Of note, I did not see Casodex on inpatient medication list. PHYSICAL EXAMINATION: VITAL SIGNS: Blood pressure 115/68, pulse 82, respirations 17, and temperature 98.5 degrees. GENERAL: The patient appears comfortable, lying in bed, occasionally tearful during the end of exam when he complains about hallucinations. HEENT: Pupils are equal, round, and reactive to light. Extraocular muscles are intact. Oral mucosa is moist and pink without erythema and without lesions. NECK AND AXILLA: Without adenopathy. HEART: Regular rate and rhythm without murmurs are appreciated. LUNGS: Clear to auscultation anteriorly without wheezing, without rhonchi. His anterior chest does demonstrate the previous catheter site with slight erythema and induration at the tunnel site. This is nontender. ABDOMEN: Bowel sounds positive. Nontender. No organomegaly noted. EXTREMITIES: Without cyanosis, clubbing, or edema. LABORATORY DATA: CBC with white blood cell count of 16.2 today, hemoglobin 7.6, and platelets of 129,000. He has a left shift with bands of 34%. Electrolytes were normal with the exception of a BUN and creatinine of 63 and 5.0 respectively. RADIOLOGIC EXAM: On 11/18/2016, the patient had CT scans of the lumbar and thoracic spine demonstrated degenerative changes with spondylolysis of L5 and S1, small scattered sclerotic lesions throughout most notable at T9 with a 2.4 cm lesion in that vertebrae. PATIENT'S NAME: KEVAN WHATLEY [facility] AGE: 76 Y [address] ROOM: [place] [address] LOCATION: [facility] ADMIT DATE: 11/18/2016 Consultation DISCHARGE DATE: FAMILY PHYSICIAN: PHYSICIAN, UNKNOWN ATTENDING PHYSICIAN: HUGO RUSSO V Previous radiologic review included ultrasound of the kidneys on 11/02/2016 without acute changes, left atrophy, and no bladder mass appreciated that was previously seen on scans in the past. On October 14, 2016, CT of the abdomen and pelvis demonstrated left posterior bladder mass, possibly hematoma, and a stable T8 sclerotic lesion, diffuse lesions that are stable compared to what was seen on bone scan in December 2015. On December 10, 2015, a bone scan was performed, demonstrated uptake of a T9 area as well as small lesions in the lumbar spine and posterior 8th and 9th rib lesions. Additionally, there is a small area at the left base of the skull, which could be uptake as well. In the distant past in 2007, he had a CT scan and a bone scan without evidence for metastatic disease at that time. IMPRESSION AND PLAN: Kevan Whatley is a 76-year-old gentleman with metastatic prostate cancer, diagnosed in 2015, currently on Lupron and Casodex therapy followed by Urology. He has had known lesions in the bone. Imaging in the ER on 11/18/2016 demonstrated similar lesions as well as 2.4 cm T9 lesion. It is unclear if these are stable or not and I do not have the PSA records to support whether or not he has had response to total androgen ablation, but provided PSA has responded and he is followed by Urology. I would have Urology continue with therapy as they feel necessary. He does have low back pain currently, which may be related to the fall and spondylolysis at L5 and S1 more so than his metastatic disease, and he would follow up for resolution of symptoms once the infection is treated. He was admitted with hemodialysis catheter infection with bacteremia, with Staph aureus, not MRSA. Currently on antibiotics and defervescing. His back pain is significantly improved since the last couple days, however, he still has some back pain remaining at the lumbar spine. I will obtain a PSA today to evaluate for response to therapy and Dr. Padilla is going to be evaluating the patient. We will defer further management to him if needed. MD NOAH COLUNGA/morena /[id number] d: 11/20/161899 t: 11/24/16 1702, CONSULTATION REPORT
--- NOTE | ~2016-11-18 | ECHO ---
Transesophageal Echocardiography Report (YISSEL) Demographics Patient Name KEVAN WHATLEY Date of Study 11/24/2016 Patient Number [id number] Visit Number [id number] Date of 1940 Room Number G6308 Gender Male Number Age 76 year(s) Referring Nighat Singh Backrest Assembler Alec Donovan MD RDCS, T Physician Interpreting [facility] [employer] Civil Engineer Physician Samantha Donovan MD Supervising Ordering Nighat GARCIA/MLP Physician Samantha Donovan MD Nurse Stress Central Office Installer Conclusions Summary The left ventricle is normal in size . Normal left ventricular wall thickness. Estimated EF: 65 %. Mildly dilated right ventricle. Normal right ventricular systolic performance. Redundant interatrial septum. Negative bubble study. No vegetations are seen. The right atrium is mildly dilated. Procedure Type of Study YISSEL procedure Procedure Date Date: 11/24/2016 Start: 08:27 AM Study Location: Inpatient Portable Technical Quality: Adequate visualization Additional Indications:Bacteremia,sepsis Appropriate Use Criteria: 9 Patient Status: Routine HR: 74 bpm BP: 106/54 mmHg O2 Saturation: 96 % YISSEL Performed By: the attending and the vault cashier Type of Anesthesia: Moderate sedation Findings Left Ventricle The left ventricle is normal in size . Normal left ventricular wall thickness. Estimated EF: 65 %. Right Ventricle Mildly dilated right ventricle. Normal right ventricular systolic performance. Left Atrium Normal left atrial size. No left atrial masses including the appendage. Right Atrium Redundant interatrial septum. Negative bubble study. The right atrium is mildly dilated. Mitral Valve Normal mitral valve. Trivial mitral regurgitation. Aortic Valve Normal trileaflet aortic valve. Tricuspid Valve Normal appearing tricuspid valve. Mild tricuspid regurgitation . Pulmonic Valve Pulmonary valve appears normal. Trivial pulmonic valve regurgitation. Pericardial Effusion No pericardial effusion. Miscellaneous Mild to moderate thoracic aorta scattered plaque. Signature dtt: Magdalene Disla dtd: 11/24/16826 Physician Self Edit
[~2016-11-18 10:06] MED LIST changes: -PRILOSEC20 MG PO; -VELTASSA8.4 GM PO
[2016-11-18 10:58] LABS: HEMATOCRIT 23.6 % (37.0-53.0); MCV 100.9 fl (83.0-98.0); MPV 10.8 fl (9.4-12.4); RBC 2.34 M/uL (3.50-5.50); RDW-CV 14.8 % (11.9-14.6)
[2016-11-18 11:00] LABS: HEMOGLOBIN 7.4 g/dL (11.0-16.0); MCH 31.6 pg (27.0-34.0); MCHC 31.4 gm/dL (32.0-36.5); PLATELET COUNT 199 K/uL (150-450); WBC 22.1 K/uL (4.0-11.0)
[2016-11-18 11:19] LABS: INR - (THERAPEUTIC) 1.2 (0.9-1.1); PROTIME 13.2 SECONDS (9.6-11.1); PTT 36 SECONDS (25-32)
[2016-11-18 11:26] LABS: ABSOLUTE NEUTROPHIL CT (ANC) 20.1 K/uL (1.4-9.0); BANDED NEUTROPHIL # 3.5 K/uL (0.0-0.1); BANDED NEUTROPHILS % 16 %; LYMPHOCYTE % 0 %; MONOCYTE # 1.8 K/uL (0.0-1.0); SEGMENTED NEUTROPHIL # 16.6 K/uL (1.4-9.0); SEGMENTED NEUTROPHIL % 75 %
[2016-11-18 11:29] LABS: ALBUMIN 2.3 gm/dL (3.5-5.0); ANION GAP 19.6 (10.0-19.0); CALCIUM 7.4 mg/dL (8.5-10.5); MAGNESIUM 1.6 mg/dL (1.3-2.6); POTASSIUM 4.6 mMol/L (3.7-5.1); TOTAL PROTEIN 5.7 g/dL (6.0-8.4)
[2016-11-18 11:57] LABS: BILIRUBIN URINE NEGATIVE (NEGATIVE); BLOOD URINE 250 /UL (NEGATIVE); GLUCOSE URINE NEGATIVE (NEGATIVE); KETONE URINE NEGATIVE (NEGATIVE); LEUKOCYTES URINE 500 /UL (NEGATIVE); NITRITE URINE NEGATIVE (NEGATIVE); PROTEIN URINE 100 mg/dL (NEGATIVE); SPEC GRAVITY URINE 1.015 (1.003-1.035); TURBIDITY URINE 3+ (CLEAR); UROBILINOGEN URINE NORMAL (NORMAL)
[2016-11-18 12:08] LABS: COLOR URINE OTHER (YELLOW)
[2016-11-18 12:10] LABS: RBC URINE 50-100 #/HPF (NEGATIVE); WBC URINE FULL FIELD #/HPF (NEGATIVE)
[2016-11-18 12:11] LABS: AMORPHOUS URINE 1+ (NEGATIVE); BACTERIA URINE NEGATIVE (NEGATIVE); EPITHELIAL URINE RARE #/HPF (NEGATIVE); MUCUS URINE 1+ (NEGATIVE)
[2016-11-18 12:20] LABS: BARBITURATE NEGATIVE (NEGATIVE); COCAINE NEGATIVE (NEGATIVE); OPIATES NEGATIVE (NEGATIVE)
[2016-11-18 12:21] LABS: AMPHETAMINE NEGATIVE (NEGATIVE)
[2016-11-18] MEDS ORDERED: PRILOSEC20 MG PO (15:05)
[2016-11-18] MEDS ORDERED: VELTASSA8.4 GM PO (15:05)
[2016-11-18] MEDS ORDERED: FLOMAX0.4 MG PO (15:06)
--- NOTE | 2016-11-18 18:51 | NUR ---
Admission Note: Patient A/O x 3. Patient states that he was at home this morning and fell. He was brought to the ED where they found his WBC and procal to be elevated. Patient was discharged from hospital last week with a new tunneled IJ dialysis line and was started on outpatient dialysis on . Per report, dialysis line site was reddened with purulent drainage, and therefore patient was taken to dialysis first and then to interventional radiology to have the line removed. Patient also reports that he has had significant head, neck, and back pain since fall. Currently wearing neck brace. Pain with movement. Patient admitted to PCU at 1700 from interventional radiology. VSS: HR 106 in Afib, RR 16, BP 96/54, MAP 69, O2 saturation 97% on room air, and temperature 97.6F. Rates pain a 5/10 in previously stated areas. Patient is very tearful and states that he has had suicidal thoughts, but does not have a plan in place, although "he wish he did". States that he has been putting too much pressure on himself and is overwhelmed at home. States that he blames everything on him. States that he has no plan to hurt himself while he is in the hospital. Plan to start IV antibiotics and replace dialysis line sometime in the next few days. Nephrology and psych consulted. Xiomara PACKER 11/18/16
[2016-11-19 03:18] LABS: HEMATOCRIT 21.1 % (37.0-53.0); MCV 98.6 fl (83.0-98.0); MPV 11.1 fl (9.4-12.4); RBC 2.14 M/uL (3.50-5.50); RDW-CV 14.7 % (11.9-14.6)
[2016-11-19 03:21] LABS: HEMOGLOBIN 6.7 g/dL (11.0-16.0); MCH 31.3 pg (27.0-34.0); MCHC 31.8 gm/dL (32.0-36.5); PLATELET COUNT 152 K/uL (150-450); WBC 16.5 K/uL (4.0-11.0)
[2016-11-19 03:37] LABS: ALBUMIN 2.1 gm/dL (3.5-5.0); ANION GAP 15.8 (10.0-19.0); CREATININE 3.4 mg/dL (0.6-1.3); PHOSPHORUS 4.8 mg/dL (2.5-4.9); POTASSIUM 3.8 mMol/L (3.7-5.1)
[2016-11-19 04:01] LABS: ABSOLUTE NEUTROPHIL CT (ANC) 14.5 K/uL (1.4-9.0); BANDED NEUTROPHIL # 2.6 K/uL (0.0-0.1); BANDED NEUTROPHILS % 16 %; LYMPHOCYTE # 0.5 K/uL (0.8-4.0); LYMPHOCYTE % 3 %; MONOCYTE # 1.5 K/uL (0.0-1.0); SEGMENTED NEUTROPHIL # 11.9 K/uL (1.4-9.0); SEGMENTED NEUTROPHIL % 72 %
[2016-11-19 04:41] LABS: HEMATOCRIT 21.1 % (37.0-53.0)
[2016-11-19 04:42] LABS: HEMOGLOBIN 6.8 g/dL (11.0-16.0)
--- NOTE | 2016-11-19 05:53 | NUR ---
Significant Event: patient blood pressures have slowly fallen throughout shift requiring Dr walker to start dopamine gtt to maintain map >60. currently running at 9mcg/kg/min. Patient tolerating well. Patient HGB found to be 6.8 and 1 unit of prbc to be transfused when ready. Patient notified and risks and benifits were explained over phone as well as patient gave consent for transfusion. Initially patient was to be transfused to ICU but pressures were improved and maintained without levophed. patient has remained able to talk throughout pressure decline as low as 50's systolically but does fall aslepp occasionally, even in middle of sentence. Follow up: monitor patient MAP closely.
[2016-11-19 10:55] LABS: HEMATOCRIT 24.4 % (37.0-53.0)
[2016-11-19 10:56] LABS: HEMOGLOBIN 7.9 g/dL (11.0-16.0)
--- NOTE | 2016-11-19 11:07 | NUR ---
Patient A/O x 3. Hyptensive with Dopamine infusing at 10 mcg/kg/min through right forearm IV. Gave 500 cc NS bolus as well. SBP now 90-100's with MAP's>65. Completed 1 unit of PRBC's at 0945. Other vital signs stable: HR 76, O2 saturation 98% on 2L, RR 16, and afebrile. Reports back pain with movement. Patient fell yesterday at home. Not given anything by mouth this shift per MD order. Family and MD's all aware of transfer. Patient arrived to ICU, room 6216 at 1030. Report given to ARMED SECURITY GUARDBIRDIE Jaramillo. No other needs or questions upon transfer. Xiomara PACKER 11/19/16
--- NOTE | 2016-11-19 12:05 | NUR ---
Occupational Therapy Note: OT attempted to complete pt OT evflora however per MD, pt is a hold for all therapies at this date. OT will check back tomorrow as appropriate. Dannielle Portillo OTR/L
--- NOTE | 2016-11-20 04:47 | NUR ---
Significant Event: Patient AOx3. Reports experiencing visual hallucinations at times, seeing green and red grapes and a black spider web on his face. Sinus rhythm with PVCs. BP stable with levophed titrated up to current rate of 0.14mcg/kg/min. Afebrile. Lung sounds clear on 1L/NC. Bowel sounds active, no bm this shift. Void x1 this shift. No new or worsening skin issues. Patient reports lower back pain that is fairly constant. Fentanyl given x2 this shift. PIVx3 intact with levophed infusing. Follow up: Wean levophed.
[2016-11-20 05:14] LABS: HEMATOCRIT 23.4 % (37.0-53.0); MCH 31.3 pg (27.0-34.0); MCHC 32.5 gm/dL (32.0-36.5); MCV 96.3 fl (83.0-98.0); MPV 11.3 fl (9.4-12.4); PLATELET COUNT 129 K/uL (150-450); RBC 2.43 M/uL (3.50-5.50); RDW-CV 16.3 % (11.9-14.6)
[2016-11-20 05:23] LABS: HEMOGLOBIN 7.6 g/dL (11.0-16.0); WBC 16.2 K/uL (4.0-11.0)
[2016-11-20 05:50] LABS: ANION GAP 18.2 (10.0-19.0); POTASSIUM 4.2 mMol/L (3.7-5.1)
[2016-11-20 05:57] LABS: CALCIUM 7.2 mg/dL (8.5-10.5)
[2016-11-20 06:29] LABS: ABSOLUTE NEUTROPHIL CT (ANC) 15.1 K/uL (1.4-9.0); BANDED NEUTROPHIL # 5.5 K/uL (0.0-0.1); BANDED NEUTROPHILS % 34 %; LYMPHOCYTE # 0.3 K/uL (0.8-4.0); LYMPHOCYTE % 2 %; MONOCYTE # 0.8 K/uL (0.0-1.0); SEGMENTED NEUTROPHIL # 9.6 K/uL (1.4-9.0); SEGMENTED NEUTROPHIL % 59 %
--- NOTE | 2016-11-20 17:41 | NUR ---
Significant Event: CARDIO: Levophed at 0/1 mcg/kg/min to keep MAP > 65. Afebrile. GI/: Hematuria 200 ml void. One large mamadou stool. RESP: Room air. SaO2 96-98%
[2016-11-21 05:28] LABS: ANION GAP 19.4 (10.0-19.0); PHOSPHORUS 6.9 mg/dL (2.5-4.9); POTASSIUM 4.4 mMol/L (3.7-5.1)
[2016-11-21 05:29] LABS: ALBUMIN 1.8 gm/dL (3.5-5.0); CALCIUM 6.9 mg/dL (8.5-10.5); CREATININE 6.2 mg/dL (0.6-1.3)
--- NOTE | 2016-11-21 05:33 | NUR ---
Significant Event: Patient AOx3, makes confused statements occasionally, but remains oriented. SR, BP labile with levophed infusing at 0.1mcg/kg/min to keep MAP>65. Pulses thready throughout. On 1L/NC, lung sounds clear. ETco2 25-33 with INSURANCE PREMIUM AUDITOR infusing 0.1mg/hr basal Dilaudid and 0.1mg demand with 10min. lockout. Bowel sounds hypoactive to rare. NG to LIS, brown/green bile. No bm this shift. [place] intact, low UOP, MD aware. Skin abnormalities noted, large abdominal surgical incision dehisced, packed with wet-dry dressing. MRSA + wound. Follow up: Monitor labs, continue.
--- NOTE | 2016-11-21 05:44 | NUR ---
Significant Event: Patient AOx3, continues to experience visual hallucinations. SR, with PVCs. BP stable with levophed currently at 0.1mcg/kg/min. RA, lung sounds clear. Bowel sounds active, no bm this shift. Void x1 per urinal dark ingrid urine. No new or worsening skin issues. Afebrile. Continues to express back pain, norco given x1 this shift. Follow up: Wean levophed.
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
--- NOTE | 2016-11-21 19:01 | NUR ---
Significant Event: Oriented x3 throughout the day but drowsy at times and admits to occassional visual hallucinations. Up to chair with 1PA, walker, and gait belt. Levo titrated between 0.1 and 0.05 to keep MAP >65. Other vital signs stable. Declined PO intake until this evening. Conversationally appropriate. Follow up: continue
--- NOTE | 2016-11-22 04:14 | NUR ---
Significant Event: AOx3, more drowsy than previous night. SR with frequent PVC, PACs. Levophed off at 2230. Continues on room air. No bm this shift. No void this shift. Afebrile. Bicarb continues at 50ml/hr. Follow up: Status change/transfer?
[2016-11-22 05:47] LABS: ALBUMIN 2.5 gm/dL (3.5-5.0); ANION GAP 20.5 (10.0-19.0); PHOSPHORUS 7.6 mg/dL (2.5-4.9); POTASSIUM 4.5 mMol/L (3.7-5.1)
[2016-11-22 05:49] LABS: CALCIUM 7.1 mg/dL (8.5-10.5); CREATININE 6.8 mg/dL (0.6-1.3)
[2016-11-22 09:26] LABS: HEMATOCRIT 21.8 % (37.0-53.0); MPV 10.8 fl (9.4-12.4); PLATELET COUNT 119 K/uL (150-450); RBC 2.32 M/uL (3.50-5.50); RDW-CV 15.3 % (11.9-14.6); WBC 13.3 K/uL (4.0-11.0)
[2016-11-22 09:27] LABS: HEMOGLOBIN 7.2 g/dL (11.0-16.0)
[2016-11-22 10:05] LABS: ABSOLUTE NEUTROPHIL CT (ANC) 11.4 K/uL (1.4-9.0); BANDED NEUTROPHIL # 1.2 K/uL (0.0-0.1); BANDED NEUTROPHILS % 9 %; LYMPHOCYTE # 0.7 K/uL (0.8-4.0); LYMPHOCYTE % 5 %; MONOCYTE # 0.9 K/uL (0.0-1.0); SEGMENTED NEUTROPHIL # 10.2 K/uL (1.4-9.0); SEGMENTED NEUTROPHIL % 77 %
--- NOTE | 2016-11-22 14:02 | NUR ---
Significant Event: Drowsy, oriented x3. Follows commands. Up to chair today. Refused Bath. 1 unit of PRBC given for hgb 7.2, if Blood cultures negative to get a tunnel dialysis catheter in IR tomorrow. Fentanyl patch to chest. Afebrile. RA. Decreased appetite, refused lunch. IV to R) x2 and L) x1, infusing Bicarb at 100 ml/hr, intermittent antibiotics. Repositions self. Infectious disease consulted and follow up in 2 weeks. PCU status. Follow up: transfer to PCU.
--- NOTE | 2016-11-22 18:30 | NUR ---
Introduced self and role of care management to patient. He acknowledges me. Talked to him briefly about skilled care and the options. He says he has heard of the SNFs but doesn't know much about them. Tells me his family wishes he was . When asked him about that he closes eyes and doesn't talk. Called and talked to Erika. Her primary concern is she is leaving town and wants to know how to legally document that their daughter can give consent and make decisions for him. Told her since he drowsy and not consistently alert he would not be able to sign any legal paperwork at this time. Asked her is she would be able to be available by phone while she is gone. She says she won't have access to her phone from 5 a.m.-6 or 7 p.m. when she is at her contract job. Told her in the line of next of kin their daughter would be next in line to her, but we would try to contact her before her daughter. She talks about his "psych" issues/behaviors. Asked her if she considered cancelling or changing her contract and she says she can't. Says financially she has to keep the contract and he knew that before he got sick. She doesn't care where he goes for care, just says he can't come home. Will follow.
--- NOTE | 2016-11-23 04:50 | NUR ---
Significant Event: A/0 X 3 BUT CONFUSED AND FORGETFULL AT TIMES. HAS PRETTY MUCH BEEN DROWSY THE ENITRE SHIFT BUT AWAKENS EASILY TO VERBAL STIMULI. ALL VSS ON RA, AFEBRILE. IF BLOOD CULTURES COME BACK NEGATIVE TODAY HE WILL GO TO INTERFENTIONAL RADIOLOGY FOR TUNNELED DIALYSIS LINE PLACEMENT AT SOME POINT TODAY. PLAN FOR DIALYSIS ON SUNDAY. Follow up:
[2016-11-23 05:11] LABS: HEMATOCRIT 24.5 % (37.0-53.0); HEMOGLOBIN 8.3 g/dL (11.0-16.0); MCH 30.9 pg (27.0-34.0); MCHC 33.9 gm/dL (32.0-36.5); MCV 91.1 fl (83.0-98.0); MPV 11.3 fl (9.4-12.4); PLATELET COUNT 127 K/uL (150-450); RBC 2.69 M/uL (3.50-5.50); RDW-CV 15.6 % (11.9-14.6); WBC 11.5 K/uL (4.0-11.0)
[2016-11-23 05:28] LABS: ALBUMIN 2.5 gm/dL (3.5-5.0); ANION GAP 21.1 (10.0-19.0); PHOSPHORUS 6.8 mg/dL (2.5-4.9); POTASSIUM 4.1 mMol/L (3.7-5.1)
[2016-11-23 05:31] LABS: CALCIUM 7.2 mg/dL (8.5-10.5); CREATININE 7.6 mg/dL (0.6-1.3)
[2016-11-23 06:10] LABS: ABSOLUTE NEUTROPHIL CT (ANC) 9.2 K/uL (1.4-9.0); BANDED NEUTROPHILS % 9 %; LYMPHOCYTE # 0.5 K/uL (0.8-4.0); LYMPHOCYTE % 4 %; MONOCYTE # 1.5 K/uL (0.0-1.0); SEGMENTED NEUTROPHIL # 8.2 K/uL (1.4-9.0); SEGMENTED NEUTROPHIL % 71 %
--- NOTE | 2016-11-23 12:42 | NUR ---
A - NUTRITION FOLLOW-UP. TX TO PCU 11/22. VISITED PT THIS MORNING, VERY SLEEPY, NOT ABLE TO CARRY ON CONVERSATION. PER RN, DROWSINESS MIGHT BE D/T NOT GETTING HD FOR DAYS. TO HAVE HD CATH REPLACED TODAY, NPO. LOW BGs THIS MORNING. LABS: NA 133, GLU 69, BUN 95, CREA 7.6, ALB 2.8, PO4 6.8, A1C 6.6%. MEDS: LEVEMIR, LEXAPRO, FLOMAX, MILD SSI. DIET: NPO FOR PROCEDURE. REGULAR W/ ENSURE ENLIVE TID. INTAKE ABOUT 26% X9 MEALS, REFUSED TO 100%. SPOKE TO PT'S . PT DOES NOT FOLLOW DM DIET AT HOME. WILL LIE TO DM RN/RD ABOUT DM DIET AT HOME. HOPEFULLY APPETITE WILL RESUME ONCE RESTARTING HD. EST NEEDS: [id number] KCAL, 78-100 GRAMS PROTEIN, FLUID NEEDS: 1ML/KCAL D - INADEQUATE ORAL INTAKE RELATED TO DECREASED APPETITE SECONDARY TO DROWSINESS EVIDENCED BY PO 26% X9 MEALS. I - WILL CONTINUE WITH ENSURE ENLIVE TID. M/E - GOAL: PT WILL BE ABLE TO TOLERATE >50% OF MEALS AND AT LEAST ONE ORAL SUPPLEMENT PER DAY IN 2-4 DAYS.
--- NOTE | 2016-11-23 19:10 | NUR ---
PATIENT HAD 9/10 LEFT ARM PAIN THIS AM THAT RESOLVED WITHOUT INTERVENTION. DR VALENTE NOTIFIED, EKG COMPLETED. PATIENT HAD TUNNELED DIALYSIS LINE PLACED THIS AFTERNOON. PLAN FOR YISSEL AND DIALYSIS TOMORROW.
[2016-11-24 05:07] LABS: HEMATOCRIT 22.6 % (37.0-53.0); MCHC 33.6 gm/dL (32.0-36.5); MCV 92.2 fl (83.0-98.0); MPV 10.6 fl (9.4-12.4); PLATELET COUNT 142 K/uL (150-450); RBC 2.45 M/uL (3.50-5.50); RDW-CV 15.8 % (11.9-14.6)
[2016-11-24 05:10] LABS: HEMOGLOBIN 7.6 g/dL (11.0-16.0)
--- NOTE | 2016-11-24 05:17 | NUR ---
Significant Event: Pt A&Ox3, but forgetful. BPs have been low all night. Around 0410 started dopamine @ 5mcg/kd/hr. Currently running @ 9mcg/kg/hr. Gave 2L bolus plus 5% 25g 500ml albumin. Gave 25% in 100ml albumin last night as well. Pt yesterday had new HD catheter placed Lt SC. Drsg remains in place; however, there is sanguineous leaking around port. It is covered with gauze and tape. Pt has chronic back pain and received Fentanyl patch. Patch was removed per Dr. Vázquez d/t pt's pressures. Pt's BS this AM was 61. Per Kathie, pt received 50mg of IV Dextrose. Pt has 3 IV sites: 2 RFA, 1 Lt wrist. Pt remains on RA, but while sleeping will dip down in the mid-high 80's. Pt is NPO as he is to have a YISSEL today. HD is scheduled for after YISSEL. Follow up: Transfer to ICU, get pressures raised, and sometime have HD.
[2016-11-24 05:25] LABS: ALBUMIN 2.1 gm/dL (3.5-5.0); POTASSIUM 4.7 mMol/L (3.7-5.1)
[2016-11-24 05:27] LABS: ANION GAP 24.7 (10.0-19.0); CALCIUM 6.9 mg/dL (8.5-10.5); CREATININE 7.8 mg/dL (0.6-1.3)
[2016-11-24 05:39] LABS: ABSOLUTE NEUTROPHIL CT (ANC) 10.8 K/uL (1.4-9.0); BANDED NEUTROPHIL # 2.3 K/uL (0.0-0.1); BANDED NEUTROPHILS % 18 %; LYMPHOCYTE # 1.3 K/uL (0.8-4.0); LYMPHOCYTE % 10 %; MONOCYTE # 0.7 K/uL (0.0-1.0); SEGMENTED NEUTROPHIL # 8.5 K/uL (1.4-9.0); SEGMENTED NEUTROPHIL % 65 %
[2016-11-24 10:39] LABS: HEMATOCRIT 23.3 % (37.0-53.0); MCH 30.6 pg (27.0-34.0); MCHC 32.6 gm/dL (32.0-36.5); MPV 11.2 fl (9.4-12.4); PLATELET COUNT 152 K/uL (150-450); RBC 2.48 M/uL (3.50-5.50); RDW-CV 15.7 % (11.9-14.6); WBC 10.3 K/uL (4.0-11.0)
[2016-11-24 10:40] LABS: HEMOGLOBIN 7.6 g/dL (11.0-16.0)
[2016-11-24 11:24] LABS: ABSOLUTE NEUTROPHIL CT (ANC) 8.9 K/uL (1.4-9.0); BANDED NEUTROPHIL # 2.2 K/uL (0.0-0.1); BANDED NEUTROPHILS % 21 %; LYMPHOCYTE # 0.6 K/uL (0.8-4.0); LYMPHOCYTE % 6 %; MONOCYTE # 0.5 K/uL (0.0-1.0); SEGMENTED NEUTROPHIL # 6.7 K/uL (1.4-9.0); SEGMENTED NEUTROPHIL % 65 %
[2016-11-24 15:32] LABS: BILIRUBIN URINE NEGATIVE (NEGATIVE); BLOOD URINE 250 /UL (NEGATIVE); GLUCOSE URINE NEGATIVE (NEGATIVE); KETONE URINE 5 mg/dL (NEGATIVE); LEUKOCYTES URINE 500 /UL (NEGATIVE); NITRITE URINE NEGATIVE (NEGATIVE); PH URINE 6.5 (4.0-8.0); PROTEIN URINE 500 mg/dL (NEGATIVE); SPEC GRAVITY URINE 1.015 (1.003-1.035); UROBILINOGEN URINE NORMAL (NORMAL)
[2016-11-24 15:33] LABS: COLOR URINE RED (YELLOW); TURBIDITY URINE 4+ (CLEAR)
[2016-11-24 15:47] LABS: BACTERIA URINE FEW (NEGATIVE); MUCUS URINE 1+ (NEGATIVE); RBC URINE PACKED FIELD #/HPF (NEGATIVE); WBC CLUMPS URINE FEW (NEGATIVE)
--- NOTE | 2016-11-24 17:15 | NUR ---
SIGNIFICANT EVENT: PATIENT HAS BEEN DROWSY THROUGHOUT THE SHIFT, SLIGHTLY MORE ALERT NOW. ANSWERS ORIENTEATION QUESTIONS APPROPRIATELY. MAKES CONFUSED COMMENTS. APPEARS TO BE EXPERIENSINF VISUAL HALLUCINATIONS. PUPILS EQUAL AND REACTIVE. OPENS EYES SPONTANEOUSLY AND TO VOICE. DENIES ANY NUMBNESS OR TINGLING OR PAIN. NO FACIAL ASYMMETRY NOTED. SPEECH IS SLOW AND MUMMBLED. PATIENT MOVES ALL 4 EXTREMITIES SPONTANEOUSLY AND TO COMMANDS, WEAKNESS THROUGHOUT. EQUAL STRENGTH. PATIENT HAS BEEN IN SINUS RHYTHM, OCCASIONAL PVC'S AND PAC'S. HR 70-90S. OULSES PALPABLE THROUGHOUT. PATIENT WAS ON LEVOPHED DRIP, TITRATED TO OFF FOR SBP >90 AND MAP>65. R) RADIAL ART LINE INSERTED TODAY BY MOWER MECHANIC, NO COMPLICATIONS. AFEBRILE. YISSEL AT BEDSIDE TODAY BY DR. Villalobos. BUBBLE STUDY REPORTED NEGATIVE BY DR. Villalobos. SLIGHT EDEMA IN ANKLES NOTED. IV ALBUMIN GIVEN EVERY 4 HOURS PER MD ORDER. OXYGEN TITRATED TO 1 L PER NASAL CANNULA. SATS >95% BOWEL SOUNDS PRESENT, NO BM TODAY. NPO UNTIL MORE ALERT. ALL PO MEDICATIONS HELD TODAY PER MD ORDER. PREVIOUSLY REPORTED TO BE ON RENAL DIET. ACCU CHECKS AN AND HS, TREADED PER MILD SLIDING SCALE PROTOCOL. PATIENT WAS STRAIGHT CATHETERED PER MD ORDER FOR U.A AND URINE CULTURES. 1250 ML OF BLOODY URINE OUTPUT, DR VALENTE NOTIFIED. NO NEW SKIN ISSUES NOTED. CURRENTLY SALINE LOCKED. FOLLOW UP: CONTINUE TO MONITOR NEURO, CARDIO, AND RESP STATUS.
--- NOTE | 2016-11-25 04:23 | NUR ---
PT LESS DROWSY SHIFT PROGRESSED; AWAKENS WITH MINIMAL STIMULI, COMPLAINING OF BACK PAIN. CONTINUES TO BE ORIENTED X3. TRANSFERED FROM BED TO BSC WITH 2PA. O2 WEAN TO RA, SATS MID 90S. PRESSORS REMAIN OFF FOR SHIFT; Q4H ALBUMIN GIVEN, BP CURRENTLY 140S SYSTOLIC, MAP 70S-80S. SWALLOW STUDY NOT PASSED THIS SHIFT DUE TO COUGHING WHILE/AFTER DRINKING 60 ML W/O STRAW. DRESSING TO DIALYSIS CATH CHANGED DUE TO SATURATION. PRN MORPHINE GIVEN X2 DOSES FOR BACK PAIN. NOAH BOWERS RN
[2016-11-25 04:37] LABS: ALBUMIN 3.2 gm/dL (3.5-5.0); CALCIUM 7.6 mg/dL (8.5-10.5); PHOSPHORUS 4.2 mg/dL (2.5-4.9)
[2016-11-25 04:38] LABS: ANION GAP 18.5 (10.0-19.0); POTASSIUM 3.5 mMol/L (3.7-5.1)
[2016-11-25 04:40] LABS: HEMATOCRIT 20.1 % (37.0-53.0); MCH 31.1 pg (27.0-34.0); MCHC 33.8 gm/dL (32.0-36.5); MCV 91.8 fl (83.0-98.0); MPV 10.7 fl (9.4-12.4); PLATELET COUNT 150 K/uL (150-450); RBC 2.19 M/uL (3.50-5.50); RDW-CV 15.6 % (11.9-14.6); WBC 12.3 K/uL (4.0-11.0)
[2016-11-25 04:44] LABS: HEMOGLOBIN 6.8 g/dL (11.0-16.0)
[2016-11-25 05:28] LABS: BANDED NEUTROPHIL # 0.9 K/uL (0.0-0.1); BANDED NEUTROPHILS % 7 %; LYMPHOCYTE # 0.5 K/uL (0.8-4.0); LYMPHOCYTE % 4 %; MONOCYTE # 1.2 K/uL (0.0-1.0); SEGMENTED NEUTROPHIL # 9.1 K/uL (1.4-9.0); SEGMENTED NEUTROPHIL % 74 %
[2016-11-25 13:01] LABS: HEMATOCRIT 23.8 % (37.0-53.0)
--- NOTE | 2016-11-25 13:52 | NUR ---
A-NUTRITION F/U CBW 87.1 KG; ADMIT WT 71.3 KG TUNNELED DIALYSIS CATHETER PLACED ON 11/24. DID NOT PASS SWALLOW EVAL ON 11/24 PT HAD BEEN REFUSING ALL TXs, BUT HAS AGREED TO DIALYSIS, RECEIVING BLOOD, ETC, PER CHART REVIEW. RECEIVED DIALYSIS ON 11/24 AND AGAIN TODAY. EXPECT TO SEE SOME WT LOSS D/T DIALYSIS AND FLUID CHANGES. LABS: NA 138, K+ 3.5, LGU 87, BUN 41, TUGGER OPERATOR 4.0, ALB 3.2 MEDS: LEVOPHED, LEVEMIR (ADJ), ZOSYN DIET RX: NPO EST NUTR. NEEDS: 1801-2239 KCALS AND 78-100 GM PROTEIN D-AT NUTRITION RISK W/INADEQUATE INTAKE OF NUTRIENTS R/T POOR APPETITE, DIFF. SWALLOWING AEB NPO STATUS, SPEECH EVAL, INTAKE RECORDS. I-IF ORAL DIET IS UNABLE TO BE RESUMED, RECOMMEND ENTERAL NUTRITION. IF ENTERAL NUTRITION DESIRED, RECOMMEND NEPRO AT A GOAL RATE OF 50 ML/HR. THIS WILL PROVIDE 2160 KCALS, 98 GM PROTEIN, AND 872 ML FREE WATER. M/E-GOAL: START APPROPRIATE NUTRITION RX IN 24-48 HOURS 1)F/U DIET RX AND POC IN 2-3 DAYS 2)ASSIST NEEDED
--- NOTE | 2016-11-25 15:18 | NUR ---
PATIENT ALERT, ORIENTED X3. OPENS EYES SPONTANEOUSLY AND TO VOICE. PUPILS EQUAL AND REACTIVE. SPEECH IS CLEAR. NO FACIAL ASYMMETRY. PATIENT MOVES ALL 4 EXTREMITIES SPONTANEOUSLY AND TO COMMANDS. EQUAL STRENGTH THROUGHOUT. PATIENT MAKES NEEDS KNOWN. PATIENT WAS NOT COOPERATIVE WITH CARES AT THE BEGINING OF THE SHIFT, REFUSED ALL MEDICATIONS AND BLOOD TRANSFUSION REGARDING EDUCATION FROM PRIMARY RN, DR. PATTON, DR. BAÑUELOS. AND AND DR VALENTE REGARDING SIGNIFICANCE OF EACH OF THE MEDICATIONS AND BLOOD THE TRANSFUSION. FAMILY WAS NOTIFIED OF PATIENT'S WISHES. FAMILY REQUESTED FOR DR. JOSHUA TO TALK TO PATIENT, DR. JOSHUA TALKED TO PATIENT REGARDING PLAN OF CARE. POST DISCUSSION WITH DR JOSHUA, PATIENT AGREED TO RECIEVE BLOOD TRANSFUSION AND ALL ORAL MEDICATIONS. PATIENT HAS BEEN IN SINUS RHYTHM, HR 70-80S. BP STABLE. R) ART LINE INTACT, GOOD WAVE FORM, NO COMPLICATIONS. AFEBRILE. PULSES PALPABLE THROUGHOUT. PATIENT RECIED 1 UNIT OF BLOOD TODAY. PATIENT ON ROOM AIR, SATS MID TO UPPER 90S. SPONT. COUGH, NON PRODUCTIVE. BOWEL SOUNDS, ACTIVE, 1 SMALL BM TODAY. STOOL HEMOCCULT POSITIVE, CDIFF POSITVE, DR. VALENTE AND DIALYSIS TEAM NOTIFIED. PATIENT NOW IN ISOLATION. NO URINE OUTPUT TODAY, DR VALENTE AND DR JOSHUA AWARE. HEMODIALYSIS COMPLETED AT BEDSIDE TODAY, NO COMPLICATIONS. DR. SHEARER PLACED SUTURES AROUND PREVIOUS DIALYSIS CATHETER INSERTION SITE R/T OOZING BLOOD PER DR. JOSHUA'S ORDER. PATIENT REPOSITIONED EVERY 2 HOURS. FOLLOW UP: CONTINUE TO MONITOR
--- NOTE | 2016-11-26 05:48 | NUR ---
PT REFUSING CARES MAJORITY OF SHIFT. ASSESSMENTS PERFORMED WHEN ABLE IF PATIENT WAS COOPERATIVE. REMAIN A/O X3, TEARFUL, AND WITHDRAWN. SATS MID 90S ON RA, RR WNL UNLESS SIGNIFICANT PAIN NOTED. HYPERTENSIVE AT TIMES, MOST NOTABLY WITH SIGNIFICANT PAIN; SBP 140S-180S THIS SHIFT. REFUSED PO INTAKE MOST OF SHIFT; WAS ABLE TO GET PT TO DRINK 30 ML H2O. BM X1, FORMED, RAJPUT. NO UOP THIS SHIFT. DIALYSIS CATH TO [facility] CONTINUED TO BLEED AT BEGINNING OF SHIFT; PRESSURE/REINFORCED DRESSING APPLIED; NO NEW BLEEDING SEEN AT THIS TIME. PRN MORPHINE GIVEN X2 THIS SHIFT. NOAH BOWERS RN
[2016-11-26 05:52] LABS: ALBUMIN 2.7 gm/dL (3.5-5.0); ANION GAP 17.5 (10.0-19.0); CALCIUM 7.9 mg/dL (8.5-10.5); CREATININE 2.9 mg/dL (0.6-1.3); PHOSPHORUS 3.7 mg/dL (2.5-4.9); POTASSIUM 3.5 mMol/L (3.7-5.1)
[2016-11-26 06:04] LABS: BASOPHIL % 0.2 %; EOSINOPHIL # 0.3 K/uL (0.0-0.5); IMMATURE GRANULOCYTE # 0.2 K/uL (0.0-0.3); IMMATURE GRANULOCYTE % 1.5 %; LYMPHOCYTE # 0.6 K/uL (0.8-4.0); LYMPHOCYTE % 4.2 %; MCH 30.4 pg (27.0-34.0); MCHC 33.3 gm/dL (32.0-36.5); MCV 91.3 fl (83.0-98.0); MONOCYTE # 1.9 K/uL (0.0-1.0); MONOCYTE % 13.8 %; MPV 10.9 fl (9.4-12.4); NEUTROPHIL # (ANC) 10.8 K/uL (1.4-9.0); NEUTROPHIL % 78.3 %; NRBC % 0 /100WBC (0-0.00); PLATELET COUNT 139 K/uL (150-450); RBC 2.63 M/uL (3.50-5.50); RDW-CV 17.5 % (11.9-14.6); WBC 13.8 K/uL (4.0-11.0)
--- NOTE | 2016-11-26 16:53 | NUR ---
Significant Event: Pt has been calm and cooperative this shift. Eating, taking all medications, and allowing cares to be performed. Alert/oriented x 3, but does compain of occasional visual hallucinations. Up to the chair x 3 with 2 assist walker/gaitbelt. 3 large loose stools this shift. Morphine given x 1 for lower back pain. Lots of pain with movements, but eases quickly with rest. Fentanyl patch increased. Follow up: continue plan of care
[2016-11-27 03:32] LABS: BASOPHIL % 0.2 %; EOSINOPHIL # 0.3 K/uL (0.0-0.5); EOSINOPHIL % 1.8 %; HEMATOCRIT 27.3 % (37.0-53.0); HEMOGLOBIN 8.9 g/dL (11.0-16.0); IMMATURE GRANULOCYTE # 0.2 K/uL (0.0-0.3); IMMATURE GRANULOCYTE % 1.4 %; LYMPHOCYTE # 0.6 K/uL (0.8-4.0); LYMPHOCYTE % 3.2 %; MCHC 32.6 gm/dL (32.0-36.5); MCV 91.9 fl (83.0-98.0); MONOCYTE # 2.3 K/uL (0.0-1.0); MPV 10.9 fl (9.4-12.4); NEUTROPHIL % 80.4 %; NRBC % 0 /100WBC (0-0.00); PLATELET COUNT 153 K/uL (150-450); RBC 2.97 M/uL (3.50-5.50)
[2016-11-27 03:35] LABS: WBC 17.4 K/uL (4.0-11.0)
[2016-11-27 03:54] LABS: ALBUMIN 2.7 gm/dL (3.5-5.0); ANION GAP 16.8 (10.0-19.0); CALCIUM 8.1 mg/dL (8.5-10.5); PHOSPHORUS 3.4 mg/dL (2.5-4.9); POTASSIUM 3.8 mMol/L (3.7-5.1)
[2016-11-27 03:56] LABS: CREATININE 4.3 mg/dL (0.6-1.3)
--- NOTE | 2016-11-27 07:02 | NUR ---
Significant Event:A/O but forgetful and has visual hallucinations at times. VSS on RA. Cooperative with cares. Transfers 2 assist with walker/gait belt. L)subclavian tunnelled line, gauze has some drainage noted on the corner. Patient is to have dialysis today time unknown. PIV to L)FA. Accucheck AC/HS BG 254 received 4 units. Morphine x1 for lower back pain. Follow up:Continue with POC.
--- NOTE | 2016-11-27 14:57 | NUR ---
I did call [facility] and left a vm regarding any private rooms, I also called [facility]a and she states they are not accepting anymore dialysis pt's at this time due to transportation. I called [facility] no private rooms at this time or semi private rooms. I called [facility] and placed on the list. They do not have a private room for cdiff and do not like to take dialysis pt's but they can always evaluate. I did have them place him on the list. WIll continue to follow.
--- NOTE | 2016-11-27 15:25 | NUR ---
Constanza called from [facility] and they have no male beds at this time but will place him on the list and yes they can transport to dialysis pending time.
--- NOTE | 2016-11-27 19:34 | NUR ---
Significant Event: Alert and oriented but drowsy. VSS, afebrile, room air. 2 assist to commode. 1 BM this shift, isolation for Cdiff. Dialysis today, L) subclavian tunneled catheter dressing reinforced, no new drainage. Started on Zyprexa. Pleasant & cooperative with cares.
[2016-11-28 03:03] LABS: BASOPHIL % 0.2 %; EOSINOPHIL # 0.3 K/uL (0.0-0.5); EOSINOPHIL % 1.9 %; HEMATOCRIT 25.9 % (37.0-53.0); HEMOGLOBIN 8.3 g/dL (11.0-16.0); IMMATURE GRANULOCYTE # 0.2 K/uL (0.0-0.3); IMMATURE GRANULOCYTE % 1.1 %; LYMPHOCYTE # 0.7 K/uL (0.8-4.0); LYMPHOCYTE % 4.1 %; MCH 30.1 pg (27.0-34.0); MCV 93.8 fl (83.0-98.0); MPV 10.7 fl (9.4-12.4); NEUTROPHIL # (ANC) 13.3 K/uL (1.4-9.0); NEUTROPHIL % 80.7 %; NRBC % 0 /100WBC (0-0.00); PLATELET COUNT 161 K/uL (150-450); RBC 2.76 M/uL (3.50-5.50); RDW-CV 16.7 % (11.9-14.6); WBC 16.5 K/uL (4.0-11.0)
[2016-11-28 03:17] LABS: ALBUMIN 2.6 gm/dL (3.5-5.0); ANION GAP 14.8 (10.0-19.0); CALCIUM 7.8 mg/dL (8.5-10.5); PHOSPHORUS 2.9 mg/dL (2.5-4.9); POTASSIUM 3.8 mMol/L (3.7-5.1)
--- NOTE | 2016-11-28 04:12 | NUR ---
Significant Event:pt alert to self however disoriented to time and place at times. pt talks to self during night. up with 2 assist gaitbelt walker. iv sl to left wrist. pt noted to have large bruised area to left lower arm from abg draw on 11/25. subclavian dialysis site to left side. dressing was reinforced yesterday at dialysis due to leaking. both dressing are intact. pt vss. prn morphine given for back pain at hs.pt also started on zyprexa. takes medication whole with no problems. cdiff isolation. 1 large bm during shift.achs blood sugars. Follow up:
--- NOTE | 2016-11-28 10:14 | NUR ---
A - NUTRITION F/U. GLU 138, BUN/YARN DUMPER 24/3.0, ALB 2.6, WBC 16.5. ON DIALYSIS MWF. DIET: RENAL, INTAKE VARIES FROM 0-100% (AVERAGE 35%). PT STATES HE ATE MOST OF BF THIS AM. RECEPTIVE TO SUPPLEMENT. D - AT RISK W/ INADEQUATE ORAL INTAKE R/T DECREASED APPETITE AEB INTAKE RECORD. I - GOAL: 50-75% INTAKE BY DISMISSAL. M/D - WILL SEND GLUCERNA BID PER PT PREFERENCE AND CONT TO MONITOR INTAKE.
--- NOTE | 2016-11-28 11:15 | NUR ---
Spoke with patient about skilled care and the ID process. Explained to him the process since he was seen by a psychiatrist here. He voices understanding and signs [facility] form. He says he is tried from therapy and needs to rest now. Will follow.
--- NOTE | 2016-11-28 17:24 | NUR ---
CONFUSED-HALLUCINATIONS. 2PA. HTN 150'S SBP. HR 70'S-80'S. RA . AFEBRILE. ACHS. C/O SEVERE PAIN TO BACK THIS AM MORPHINE X1. ULTRAM X1. DIALYSIS MWF TUNNEL CATH TO L SIDE WITH STITCHES AND DSG SHADOW BLOODY DRAINAGE. ISO CDIF. NO URINE. NO BM TODAY. DAUGHTER AND COLLEENARY CAME IN TO SIGN POA PAPERS.
[2016-11-29 04:47] LABS: BASOPHIL % 0.1 %; EOSINOPHIL # 0.3 K/uL (0.0-0.5); EOSINOPHIL % 1.7 %; HEMATOCRIT 25.6 % (37.0-53.0); HEMOGLOBIN 8.3 g/dL (11.0-16.0); IMMATURE GRANULOCYTE # 0.2 K/uL (0.0-0.3); IMMATURE GRANULOCYTE % 0.9 %; LYMPHOCYTE # 0.7 K/uL (0.8-4.0); LYMPHOCYTE % 4.3 %; MCH 30.4 pg (27.0-34.0); MCHC 32.4 gm/dL (32.0-36.5); MCV 93.8 fl (83.0-98.0); MONOCYTE # 1.9 K/uL (0.0-1.0); MONOCYTE % 11.1 %; MPV 10.7 fl (9.4-12.4); NEUTROPHIL # (ANC) 13.9 K/uL (1.4-9.0); NEUTROPHIL % 81.9 %; NRBC % 0 /100WBC (0-0.00); RBC 2.73 M/uL (3.50-5.50); RDW-CV 16.5 % (11.9-14.6)
[2016-11-29 04:58] LABS: PLATELET COUNT 198 K/uL (150-450)
[2016-11-29 05:03] LABS: ALBUMIN 2.6 gm/dL (3.5-5.0); ANION GAP 14.2 (10.0-19.0); CALCIUM 7.8 mg/dL (8.5-10.5); MAGNESIUM 2.2 mg/dL (1.3-2.6); PHOSPHORUS 3.5 mg/dL (2.5-4.9); POTASSIUM 4.2 mMol/L (3.7-5.1)
[2016-11-29 05:06] LABS: CREATININE 4.4 mg/dL (0.6-1.3)
--- NOTE | 2016-11-29 05:52 | NUR ---
Significant Event: PATIENT IS ALERT AND ORIENTED BUT IS EXPERIENCING HALLUCINATIONS AND RAMBLING THOUGHTS. HE IS BEGINNING TO BECOME ARGUMENATIVE. HE HAS PITTING EDEMA THROUGHOUT. REFUSED TO GET TO BED AND REFUSED TO STAND FOR WEIGHT. DIALYSIS CATH TO LEFT CHEST AREA IS INTACT. DRESSING HAS SHADOWING. ACCU CHECK AT HS WAS 254. DIALYSIS IS MWF. Follow up:
--- NOTE | 2016-11-29 14:36 | NUR ---
Alining Inspector from [facility] here this afternoon for the Level II screening for the ID Screen. Will work on placement as we await their decison. Will follow.
--- NOTE | 2016-11-29 19:24 | NUR ---
ANSWERS ORIENTATION QUESTIONS APPROPRIATELY BUT VERY DROWSY. MUMBLES CONFUSED STATEMENTS. PT REPORTS HALLUCINATIONS. VSS, AFEBRILE, ROOM AIR. 2 ASSIST. OFF FLOOR TO DIALYSIS. UP IN CHAIR, REFUSED REPOSITIONING. TRAMADOL GIVEN X1. MENTAL HEALTH EVAL DONE TODAY FOR SNF PLACEMENT. COOPERATIVE WITH CARES BUT GETS IRRITATED WITH BEING ASKED MULTIPLE QUESTIONS.
[2016-11-30 05:38] LABS: BASOPHIL % 0.3 %; EOSINOPHIL # 0.3 K/uL (0.0-0.5); HEMATOCRIT 25.7 % (37.0-53.0); HEMOGLOBIN 8.1 g/dL (11.0-16.0); IMMATURE GRANULOCYTE # 0.1 K/uL (0.0-0.3); IMMATURE GRANULOCYTE % 0.9 %; LYMPHOCYTE # 0.6 K/uL (0.8-4.0); LYMPHOCYTE % 4.4 %; MCH 30.1 pg (27.0-34.0); MCHC 31.5 gm/dL (32.0-36.5); MCV 95.5 fl (83.0-98.0); MONOCYTE # 1.8 K/uL (0.0-1.0); MONOCYTE % 12.5 %; MPV 10.7 fl (9.4-12.4); NEUTROPHIL # (ANC) 11.2 K/uL (1.4-9.0); NEUTROPHIL % 79.9 %; NRBC % 0 /100WBC (0-0.00); PLATELET COUNT 232 K/uL (150-450); RBC 2.69 M/uL (3.50-5.50); RDW-CV 16.6 % (11.9-14.6)
[2016-11-30 05:52] LABS: ALBUMIN 2.8 gm/dL (3.5-5.0); ANION GAP 13.2 (10.0-19.0); CREATININE 3.4 mg/dL (0.6-1.3); MAGNESIUM 2.2 mg/dL (1.3-2.6); POTASSIUM 4.2 mMol/L (3.7-5.1)
--- NOTE | 2016-11-30 06:56 | NUR ---
Significant Event: PATIENT A/0 X 3 BUT HAS REMIANED DROWSY ENTIRE SHIFT. AROUSES TO VERBAL STIMULI. NO SIGNS OF HALLUCINATIONS DURING SHIFT. PATIENT DID REMAIN IN CHAIR THIS EVENING AND REFUSED REPOSITIONING AT TIMES. ALL VSS ON RA, AFEBRILE. NO COMPLAINTS OF PAIN NO PAIN MEDS GIVEN. Follow up:
--- NOTE | 2016-11-30 11:41 | NUR ---
A - NUT F/U. DIALYSIS (ESRD). 2-3+ EDEMA. LABS: ACCUCHECK WNL->200, BUN/CR 22/3.4, ALB 2.8, WBC 14.0, HGB/HCT 8.1/25.7. MEDS: LEVEMIR, ANCEF, VANCO, PROTONIX, SSI, PHOSLO. DIET: RENAL. INTAKE: 25-100% (AVG ~60%) - IMPROVED. GLUCERNA BID NEEDS: [id number] KCAL, 78-100 G PRO D - INADEQUATE NUTRIENT INTAKE AT TIMES R/T DECREASED APPETITE AEB INTAKE RECORD. I - GOAL FOR INTAKE 50-100% BY NEXT ASSESSMENT. WILL INCREASE GLUCERNA TO TID. M/E - WILL MONITOR INTAKE F/U IN 4-5 DAYS.
--- NOTE | 2016-11-30 12:19 | NUR ---
reviewed student charting and on the floor from [id number] rachael rn-ccc
--- NOTE | 2016-11-30 12:30 | NUR ---
Spoke this a.m. with [facility] and she says they do have openings at [facility] in [place] and they would be able to transport to dialysis in [place]. Called and spoke with Poppy at [facility] and told her would be open to facilities in the [facility] that can transport to and from dialysis. Clinical information faxed to Poppy at [facility]. Will follow.
--- NOTE | 2016-11-30 16:59 | NUR ---
Significant Event: A/OX3, FORGETFUL & DROWSY MOST OF SHIFT. PT. IS ON ROOM AIR. PT. GETS UP 1 ASSIST TO BATHROOM, STAYS IN CHAIR MOST OF THE DAY, NEEDS ENCOURAGMENT TO REPOSITION IN CHAIR. SLIV TO L)WRIST. PT. HAD ONLY A SM SMEAR TODAY. L)TUNNELED DIALYSIS LINE DRESSING IS INTACT. OLD TUNNELED LINE DRESSING IS C/D/I. PT. WILL GO DIALYSIS IN AM, PT. WILL GET AN EARLY TRAY. MS GIVEN AT 0843 FOR BACK/NECK PAIN. AC/HS ACCUCHECKS. Follow up: WAITING ON SNF PLACEMENT IN [place].
--- NOTE | 2016-12-01 04:10 | NUR ---
Significant event: Patient is A/O x 3 but forgetful at times. Up to the bathroom with 2 assist gaitbelt and walker. He was quite weak in his legs last night. During 3rd assessment patinets blood sugar checked and was 49 juice given and glucerna shake drank. Blood sugar came up to 85 within 30min. Morphine given x 2 last at 0300 for back/neck pain with releif noted each time. will go for dialysis this morning.
[2016-12-01 05:47] LABS: BASOPHIL # 0.1 K/uL (0.0-0.2); BASOPHIL % 0.3 %; EOSINOPHIL # 0.2 K/uL (0.0-0.5); EOSINOPHIL % 1.3 %; HEMATOCRIT 23.5 % (37.0-53.0); IMMATURE GRANULOCYTE # 0.1 K/uL (0.0-0.3); IMMATURE GRANULOCYTE % 0.8 %; LYMPHOCYTE # 0.8 K/uL (0.8-4.0); LYMPHOCYTE % 4.4 %; MCH 30.1 pg (27.0-34.0); MCHC 31.5 gm/dL (32.0-36.5); MCV 95.5 fl (83.0-98.0); MONOCYTE # 2.4 K/uL (0.0-1.0); MONOCYTE % 13.7 %; MPV 10.7 fl (9.4-12.4); NEUTROPHIL # (ANC) 13.7 K/uL (1.4-9.0); NEUTROPHIL % 79.5 %; NRBC % 0 /100WBC (0-0.00); PLATELET COUNT 269 K/uL (150-450); RBC 2.46 M/uL (3.50-5.50); RDW-CV 16.4 % (11.9-14.6)
[2016-12-01 05:52] LABS: HEMOGLOBIN 7.4 g/dL (11.0-16.0); WBC 17.2 K/uL (4.0-11.0)
[2016-12-01 05:55] LABS: ALBUMIN 2.5 gm/dL (3.5-5.0); MAGNESIUM 2.3 mg/dL (1.3-2.6); PHOSPHORUS 3.4 mg/dL (2.5-4.9)
[2016-12-01 05:56] LABS: ANION GAP 17.5 (10.0-19.0); CREATININE 4.8 mg/dL (0.6-1.3); POTASSIUM 5.5 mMol/L (3.7-5.1)
--- NOTE | 2016-12-01 12:20 | NUR ---
reviewed student charting and on the floor from [id number]. rachael hoffman-ccc
--- NOTE | 2016-12-01 16:30 | NUR ---
Significant Event: PT. STILL DROWSY ON/OFF THROUGHOUT SHIFT. VSS ON ROOM AIR. PT. GETS UP 1 ASSIST, BELT/WALKER TO BATHROOM, NEEDS ENCOURAGEMENT ON REPOSITIONING IN CHAIR. MS GIVEN AT 1504 FOR COMPLAINTS OF PAIN. 3.5L TAKEN OFF IN DIALYSIS TODAY. L)TUNNELED DIALYSIS LINE IS INTACT. SUTURES REMOVED FROM LEFT NECK TODAY. OLD TUNNELED LINE DRESSING IS C/D/I. SLIV TO L)WRIST. HS LEVEMIR D/C'D. BLOOD SUGARS HAVE BEEN LOW 100'S THIS SHIFT. POSSIBLE PLACEMENT IN [place] EARLY NEXT WEEK. Follow up: CONTINUE WITH POC.
--- NOTE | 2016-12-01 17:27 | NUR ---
Several calls with Lizz from [facility] and their facility [facility] in [place] can accept patient. Told her I will now work on arrangements for dialysis and anticipate he will be ready for transfer on Sunday or Sunday pending dialysis arrangements. Called and spoke with Cinthya in dialysis and she will send out the request for location transfer to the [facility]. Received call from Mounika with [facility] and they can start him on dialysis at the [facility] on 12/06 on their third shift. Told her I will need to contact [facility] to be sure they can transport him. Called Lizz at [facility]. Received call from Lizz and the third shift will work. Called and left VMM for Mounika at [facility] to tell her the third shift will work. Called and left VMM for his . Call back from his and updated her. She says she prefers [place]. Told her facilities in [place] either have no male beds or won't transport to dialysis and with none of the family able to help with transportation we had to look outside of [place] to facilities that transport to dialysis. She asks if he can transfer to [place] if something opens up. I told her he could but she would have to work with the facilities to have them contact her and she would have to work on that process. She asks if I have called their daughter, told her no. Talked with patient and updated him. He prefers to stay in [place] or go home. Explained to him why he cannot go home and why facilities in [place] are not an option. Told him anticipate transfer to [facility] on Sunday afternoon or Sunday, depending on their van schedule and what his Drs. say. Left VMM for their daughter. Will follow.
[2016-12-02 03:43] LABS: BASOPHIL % 0.2 %; EOSINOPHIL # 0.2 K/uL (0.0-0.5); EOSINOPHIL % 1.5 %; HEMATOCRIT 22.1 % (37.0-53.0); IMMATURE GRANULOCYTE # 0.1 K/uL (0.0-0.3); IMMATURE GRANULOCYTE % 0.4 %; LYMPHOCYTE # 0.6 K/uL (0.8-4.0); LYMPHOCYTE % 4.8 %; MCH 30.1 pg (27.0-34.0); MCHC 31.2 gm/dL (32.0-36.5); MCV 96.5 fl (83.0-98.0); MONOCYTE # 2.2 K/uL (0.0-1.0); MONOCYTE % 18.3 %; MPV 10.7 fl (9.4-12.4); NEUTROPHIL # (ANC) 9.1 K/uL (1.4-9.0); NEUTROPHIL % 74.8 %; NRBC % 0 /100WBC (0-0.00); PLATELET COUNT 261 K/uL (150-450); RBC 2.29 M/uL (3.50-5.50); RDW-CV 16.4 % (11.9-14.6); WBC 12.2 K/uL (4.0-11.0)
[2016-12-02 03:47] LABS: HEMOGLOBIN 6.9 g/dL (11.0-16.0)
[2016-12-02 03:56] LABS: ALBUMIN 2.8 gm/dL (3.5-5.0); ANION GAP 13.7 (10.0-19.0); CALCIUM 7.9 mg/dL (8.5-10.5); CREATININE 3.4 mg/dL (0.6-1.3); MAGNESIUM 2.3 mg/dL (1.3-2.6); PHOSPHORUS 2.7 mg/dL (2.5-4.9); POTASSIUM 4.7 mMol/L (3.7-5.1)
--- NOTE | 2016-12-02 05:11 | NUR ---
Significant Event: A/0X3.DROWSY MOST OF THE SHIFT. AWAKES EASILY TO VERBAL STIMULI. FORGETFUL. 1 ASSIST WITH WALKER. TURNED Q 2 HRS SIDE TO SIDE. AFEBRILE. VSS ON RA. MORPHINE GIVEN X2. LAST DOSE WAS AT 0454. PATIENT WAS ABLE TO FIND RELIEF AND IS RESTING COMFORTABLY. IV TO L) WRIST SL. TUNNELED DIALYSIS CATHETER TO L) SUBCLAVIAN SL. OLD TUNNELED SITE DRESSING D/I. HAS SOME DRIED BLOOD AROUND SITE. NO URINE OUTPUT. NO BM THIS SHIFT. Follow up: CONTINUE WITH POC
--- NOTE | 2016-12-02 16:39 | NUR ---
Significant Event: PT. REMAINS SLEEPY MOST OF SHIFT, WILL AWAKEN WITH VOICE. VSS ON ROOM AIR, SLIGHT TEMP OF 99.3 THIS SHIFT. PT. GETS UP 1 ASSIST TO CHAIR. USED BSC TODAY D/T PT. THOUGHT HE DIDN'T KNOW IF HE COULD TRUST HIS LEGS. L)TUNNELED DIALYSIS CATHETER INTACT, OLD SITE IS OPEN TO AIR, 1 STITCH STILL REMAINS TO SITE. PT. RECEIVED 1 UNIT OF PRBC FOR A HGB OF 6.9 THIS AM. SLIV TO L)WRIST. DAUGHTER CAME AND SAW PT. TODAY, WILL BRING SOME OF HIS ITEMS IN TOMORROW. WILL D/C TO GI ON SUNDAY OR SUNDAY. NO INSULIN COVERAGE THIS SHIFT. MS GIVEN AT 0725 FOR PAIN. Follow up: CONTINUE WITH POC.
[2016-12-03 03:55] LABS: BASOPHIL % 0.3 %; EOSINOPHIL # 0.2 K/uL (0.0-0.5); EOSINOPHIL % 1.2 %; HEMATOCRIT 24.5 % (37.0-53.0); IMMATURE GRANULOCYTE # 0.1 K/uL (0.0-0.3); IMMATURE GRANULOCYTE % 0.5 %; LYMPHOCYTE # 0.7 K/uL (0.8-4.0); LYMPHOCYTE % 5.5 %; MCH 30.3 pg (27.0-34.0); MCHC 32.2 gm/dL (32.0-36.5); MCV 93.9 fl (83.0-98.0); MONOCYTE # 2.2 K/uL (0.0-1.0); MONOCYTE % 18.5 %; MPV 10.7 fl (9.4-12.4); NEUTROPHIL # (ANC) 8.9 K/uL (1.4-9.0); NRBC % 0 /100WBC (0-0.00); PLATELET COUNT 291 K/uL (150-450); RBC 2.61 M/uL (3.50-5.50); RDW-CV 16.6 % (11.9-14.6); WBC 12.1 K/uL (4.0-11.0)
[2016-12-03 03:57] LABS: HEMOGLOBIN 7.9 g/dL (11.0-16.0)
[2016-12-03 04:20] LABS: ALBUMIN 2.7 gm/dL (3.5-5.0); ANION GAP 12.4 (10.0-19.0); CALCIUM 7.8 mg/dL (8.5-10.5); MAGNESIUM 2.1 mg/dL (1.3-2.6); PHOSPHORUS 2.9 mg/dL (2.5-4.9); POTASSIUM 5.4 mMol/L (3.7-5.1)
[2016-12-03 04:30] LABS: CREATININE 4.7 mg/dL (0.6-1.3)
--- NOTE | 2016-12-03 04:36 | NUR ---
Significant Event: A/0X3. FORGETFUL. DROWSY BUT AWAKES EASILY TO VERBAL STIMULI. MAX TEMP OF 99.0 THIS SHIFT. VSS ON RA. MORPHINE X2 AND ULTRAM X1 FOR C/O OF LOWER BACK PAIN. PATIENT WAS ABLE FIND SOME RELIEF AND REST OFF AND ON THROUGHOUT THE NIGHT. IV TO L) WRIST SL. DIALYSIS CATHETER TO L) SUBCLAVIAN SL. OLD SITE HAS ONE SUTURE IN PLACE AND OPEN TO AIR. PATIENT HAD A BLOODY NOSE THIS SHIFT. NO OUTPUT THIS SHIFT. NO BM. Follow up: CONTINUE WITH POC.
--- NOTE | 2016-12-03 15:29 | NUR ---
Significant Event: pt had excruciating pain this am, morphine and ultram given. Pt forgetful and sleepy on/off but does arouse. Heparin on hold as pt had bloody nose this am. Foot pumps on aram.feet. Pt daughter calls and check on pt and said will be in. Pt refusing to eat today but does drink and take meds. 99.1 max temp. Follow up:
[2016-12-04 04:17] LABS: HEMATOCRIT 27.5 % (37.0-53.0); HEMOGLOBIN 8.6 g/dL (11.0-16.0); MCH 29.6 pg (27.0-34.0); MCHC 31.3 gm/dL (32.0-36.5); MCV 94.5 fl (83.0-98.0); MPV 10.3 fl (9.4-12.4); PLATELET COUNT 315 K/uL (150-450); RBC 2.91 M/uL (3.50-5.50); RDW-CV 16.2 % (11.9-14.6); WBC 14.1 K/uL (4.0-11.0)
[2016-12-04 04:36] LABS: ALBUMIN 2.6 gm/dL (3.5-5.0); CALCIUM 8.5 mg/dL (8.5-10.5); CREATININE 5.8 mg/dL (0.6-1.3); MAGNESIUM 2.3 mg/dL (1.3-2.6); PHOSPHORUS 3.8 mg/dL (2.5-4.9)
[2016-12-04 05:09] LABS: ABSOLUTE NEUTROPHIL CT (ANC) 11.6 K/uL (1.4-9.0); BANDED NEUTROPHIL # 0.1 K/uL (0.0-0.1); BANDED NEUTROPHILS % 1 %; LYMPHOCYTE # 0.4 K/uL (0.8-4.0); LYMPHOCYTE % 3 %; MONOCYTE # 2.1 K/uL (0.0-1.0); SEGMENTED NEUTROPHIL # 11.4 K/uL (1.4-9.0); SEGMENTED NEUTROPHIL % 81 %
--- NOTE | 2016-12-04 06:43 | NUR ---
Significant Event: DROWSY MOST OF THE SHIFT BUT AWAKES EASILY TO VERBAL STIMULI. FORGETFUL.TURNED Q 2HRS SIDE TO SIDE. AFEBRILE. VSS ON RA. MORPHINE GIVEN X3 FOR BACK PAIN. PATIENT WAS ABLE TO FIND SOME RELIEF AN REST COMFORTABLY THROUGHOUT THE NIGHT. IV TO L) WRIST SL. CONTINUE WITH IV ANCEPF AND PO VANCO. NO UOP. NO BM. REFUSED SUPPER. ENCOURAGED HIM TO DRINK FLUIDS. Follow up: CONTINUE WITH PLAN OF CARE.
--- NOTE | 2016-12-04 13:00 | NUR ---
Several calls with Lizz from [facility] this a.m. [facility] can pick him up with their van on Tuesday 12/05 at 0930. Updated dialysis, Mami (at Dr[facility] Rouse [facility]) and Dr. Cantu. Will call and udpate patient's and daughter. Will follow.
--- NOTE | 2016-12-04 16:25 | NUR ---
Spoke on the phone with patient's . Answered her questions. Gave her contact information and address for [facility]. She voices concern about finances. Encouraged her to apply for medicaid for him by going online to [facility] website. She says she will have their daughter do that. She says what her daughter sees when she visits and how he is on the phone is different that what the nurses tell her. She voices understanding and agreement of plans to transfer to [facility] in [place] for skilled care. She says to call their [facility]. Left [facility] for his daughter, thanking her for bringing him clothes and to let her know date and time of transfer. Patient to transfer to [facility] SNF in [place] tomorrow at 0930 via [place] van. Will follow.
--- NOTE | 2016-12-04 16:51 | NUR ---
Significant Event: A/OX3, FORGETFUL AT TIMES. VSS ON ROOM AIR. 3.9L REMOVED IN DIALYSIS TODAY, LEFT TUNNELED LINE DRESSING CHANGED TODAY. SCAN AMOUNT OF BLOODY DRAINAGE AT OLD STITCH SITE WHERE OLD TUNNELED LINE WAS. PT. GETS UP 1 ASSIST WITH WALKER/BELT. ULTRAM GIVEN AT 1453 FOR PAIN. SLIV TO LEFT WRIST. PT. WILL D/C TO NH IN [place] IN AM, D/C MEDS TO [facility], DR. LEE YET TO FILL OUT. Follow up: DISMISS TO GI IN AM.
[2016-12-05 05:45] LABS: HEMATOCRIT 24.3 % (37.0-53.0); MCH 30.1 pg (27.0-34.0); MCHC 32.1 gm/dL (32.0-36.5); MCV 93.8 fl (83.0-98.0); MPV 9.9 fl (9.4-12.4); PLATELET COUNT 286 K/uL (150-450); RBC 2.59 M/uL (3.50-5.50); RDW-CV 16.1 % (11.9-14.6); WBC 11.8 K/uL (4.0-11.0)
[2016-12-05 05:47] LABS: HEMOGLOBIN 7.8 g/dL (11.0-16.0)
[2016-12-05 06:01] LABS: ALBUMIN 2.7 gm/dL (3.5-5.0); ANION GAP 13.7 (10.0-19.0); CALCIUM 8.3 mg/dL (8.5-10.5); CREATININE 3.8 mg/dL (0.6-1.3); MAGNESIUM 2.3 mg/dL (1.3-2.6); PHOSPHORUS 3.1 mg/dL (2.5-4.9); POTASSIUM 4.7 mMol/L (3.7-5.1)
[2016-12-05 06:22] LABS: ABSOLUTE NEUTROPHIL CT (ANC) 10.6 K/uL (1.4-9.0); BANDED NEUTROPHIL # 0.6 K/uL (0.0-0.1); BANDED NEUTROPHILS % 5 %; LYMPHOCYTE % 0 %; MONOCYTE # 1.2 K/uL (0.0-1.0); SEGMENTED NEUTROPHIL % 85 %
--- NOTE | 2016-12-05 06:39 | NUR ---
Significant Event: Patient is alert/oriented x3, but very forgetful and says random statements at times. Vital signs are stable and he continues on room air. Morphine given x2 and Tramadol given x1 for back pain, with relief. No urine output last night (he is M,W,F dialysis patient) and no stools last night. Continues on isolation for C. diff. Turn q.2hr, does have open spot on left buttock. Follow up: Transfer to GI half-way today
--- NOTE | 2016-12-05 09:09 | NUR ---
Significant Event: TRANSFER NOTE: ALERT. ABLE TO TELL MONTH AND YEAR. SOME OFF STATEMENTS AT TIMES THAT DON'T MAKE SENSE. HR 83 IN SR. SATS 93% ON ROOM AIR. NO RESP. DISTRESS. HAS LT.SUBCLAVIAN TUNNELED LINE IN PLACE: DRESSING C/D/I. HEMODIALYSIS: NO URINE. SOME OPEN SORE ON BUTTOCK. SOME SCATTERED BRUISING ON BODY. C/O BACK PAIN. HAS FENTANYL PATCH ON LT. UPPER ARM, NEW ONE PLACED TODAY. TAKES MEDS WELL. APPETITE POOR TO FAIR. LAST BM ON 12/02 AND IT WAS FORMED. Follow up: CONT. PLAN OF CARES GI CUSTODIAL. FACILITY
--- NOTE | 2016-12-05 09:30 | NUR ---
Spoke with Lizz at [facility] and got phone number for nurse to nurse. Orders faxed to Lizz at her request and she will fax to the facility. Nurse will call nurse to nurse report. Patient to transfer to [facility] via [facility] this a.m. for skilled care.
== END 2016-12-05 10:50 | DRG 871 ==
LOC: GACC 10:06 → GMED 10:06 → GICU 12:16 → GPCU 12:16 → GICU 11-19 10:32 → GPCU 11-22 16:31 → GICU 11-24 05:19 → GPCU 11-26 18:59
PROVIDERS: Family Medicine; Internal Medicine; Internal Medicine Nephrology; Nurse Practitioner; ADMIT Internal Medicine
DX: A41.01 Sepsis due to Methicillin susceptible Staphylococcus aureus (principal); R65.21 Severe sepsis with septic shock; A04.7 Enterocolitis due to Clostridium difficile; E87.2 Acidosis; C79.51 Secondary malignant neoplasm of bone; N18.6 End stage renal disease; D62 Acute posthemorrhagic anemia; F33.3 Major depressive disorder, recurrent, severe with psychotic symptoms; I13.11 Hypertensive heart and chronic kidney disease without heart failure, with stage 5 chronic kidney disease, or end stage renal disease; N39.0 Urinary tract infection, site not specified; R45.851 Suicidal ideations; T82.7XXA Infection and inflammatory reaction due to other cardiac and vascular devices, implants and grafts, initial encounter; E11.22 Type 2 diabetes mellitus with diabetic chronic kidney disease; Z99.2 Dependence on renal dialysis; C61 Malignant neoplasm of prostate; D72.825 Bandemia; D72.829 Elevated white blood cell count, unspecified; I25.10 Atherosclerotic heart disease of native coronary artery without angina pectoris; W19.XXXA Unspecified fall, initial encounter; Z87.891 Personal history of nicotine dependence; Z91.19 Patient's noncompliance with other medical treatment and regimen; Z90.79 Acquired absence of other genital organ(s)
CPT/HCPCS: C1750; C9113; G0480; J0690; J1265; J1644; J1756; J2270; J2543; J2700; J3010; J3370; J7030; J7040; J7050; J7060; J9217; P9016; P9045; P9047

== ENCOUNTER → 2016-11-18 | Outpatient (CLI) | payer MEDICARE, MEDICAID | END | disposition disaster alternative care site (69) | LOC: GAMB 09:42 | DX: M54.2 Cervicalgia (principal); E11.9 Type 2 diabetes mellitus without complications; R53.1 Weakness; Z79.899 Other long term (current) drug therapy | CPT/HCPCS: A0425; A0427; J1756; J3010; J7030; P9047 ==